=== PATIENT | male | born 1950 | race Caucasian/White ===

== ENCOUNTER 2022-09-09 18:40 | Inpatient (IN) | payer OTHER, SELFPAY ==
--- OUTSIDE RECORDS SUMMARY | 2022-09-09 18:43 | XMS_ITS | Continuity of Care Document ---
:1950 Author Organization [facility] Address [address] [place] [address]- Care Team Providers Name Role Phone Qamar Bobby DO Primary Care Physician Encounter [facility] Date(s): 07/17/22 - 08/27/22 [facility] [address] [place] [address]- Attending Physician: Augustine Christianson MD Admitting Physician: Augustine Christianson MD Referring Physician: Qamar Bobby DO Allergies, Adverse Reactions, Alerts No Known Medication Allergies Immunizations Given and Recorded Vaccine Date Status Refusal Reason [id number] bivalent booster vax 07/17/22 Given influenza virus vaccine, inactivated 07/17/22 Given influenza virus vaccine, inactivated 06/26/15 Given influenza virus vaccine, inactivated 07/19/14 Given influenza virus vaccine, inactivated1 05/10/13 Given influenza virus vaccine, inactivated2 04/21/12 Given influenza virus vaccine, inactivated3 06/04/11 Given pneumococcal 13-valent vaccine 02/05/17 Given Zoster Vaccine Live 09/04/14 Given pneumococcal 23-valent vaccine4, 5 07/13/09 Given Influenza Virus Vaccine (oldterm)6 09/05/08 Given Influenza Virus Vaccine (oldterm)7 07/29/06 Given tetanus-diphtheria toxoids (Td)8 08/04/07 Given 1Admin Note: vis given dated Admin Note: VIS Admin Note: vis given Early/Late Reason: Nursing [id number] Comment: Merck Lot #[id number], exp [id number] Note: VIS [id number] Note: [id number] Note: vis Medications albuterol CFC free 90 mcg/inh inhalation aerosol 1, puffs, Inhalation, Every 4 hours, PRN, moldovan label, # 18 Gm, Refills 11, Tot. Refills 11, Maintenance, 06/25/22 9:40:00 EST, Aerosol, Route to Pharmacy Electronically, [id number], [facility] 175, cm, ... Start Date: 06/25/22 Status: OrderedAll Day Allergy 10 mg oral tablet See Instructions, GHULAM 1 TABLETA POR LA BOCA CADA MIRANDA CUANDO SEA NECESARIO, # 30 tablet, 0 Refills,Maintenance, 07/29/22 17:01:00 EST[facility], [facility], cm, 07/17/22 11:25:00 EST, Height Start Date: 07/29/22 Status: OrderedAnoro Ellipta 62.5 mcg-25 mcg/inh inhalation powder 1 puffs, Inhalation, Daily, # 30 each, 0 Refills, Maintenance, 06/09/22 14:34:00 EDT, Powder, [facility]/pharmacy #[id number], Partial fill upon patient request if the prescription is for a schedule II opioid drug., 1 puffs Inhalation Daily, 175, cm, 06/09/22 14:0... Start Date: 06/09/22 Status: Orderedaspirin 81 mg oral delayed release tablet 81 mg, 1, tablet, By Mouth, Daily, # 30 tablet, Refills 0, Tot. Refills 0, Maintenance, 06/09/22 14:31:00 EDT, Route to Pharmacy Electronically, [facility]/pharmacy #[id number], Partial fill upon patient request ifthe prescription is for a schedule II opioid drug... Start Date: 06/09/22 Status: Orderedatorvastatin 40 mg oral tablet 1 tablet = 40 mg, By Mouth, Daily, moldovan label, # 30 tablet, 11 Refills, Maintenance, 06/25/22 9:40:00 EST, Tablet, [facility] 175, cm, 06/25/22 9:25:00 EST, Height Start Date: 06/25/22 Stop Date: 06/20/23 Status: Ordereddiclofenac 1% topical gel 1 application, Topically, 4 times a day, not to exceed 32 grams/day, # 100 Gm, 2 Refills, Maintenance, 07/17/22 11:44:00 EST, Gel[facility] fill upon patient request if the prescription is for a schedule II opioid drug., 175... Start Date: 07/17/22 Status: OrderedGolytely - oral powder for reconstitution See Instructions, Drink 240mL every 15 minutes until gone, # 4,000 mL, 0 Refills, Maintenance, 08/11/22 13:25:00 EST, [facility] Partial fill upon patient request if the prescription is for a schedule II opioid drug., Drink 240mL ever... Start Date: 08/11/22 Status: Orderedhydrochlorothiazide-losartan 12.5 mg-100 mg oral tablet 1 tablet, By Mouth, Daily, moldovan label, # 30 tablet, 11 Refills, Maintenance, 06/25/22 9:41:00 EST, Tablet, [facility] Partial fill upon patient request if the prescription is for a schedule II opioid drug., 1 tablet By Mouth Daily,... Start Date: 06/25/22 Status: OrderedMetoprolol Tartrate 25 mg oral tablet 1 tablet = 25 mg, By Mouth, Daily, moldovan label, # 30 tablet, 11 Refills, Maintenance, 06/25/22 9:40:00 EST, Tablet, [facility] 175, cm, 06/25/22 9:25:00 EST, Height Start Date: 06/25/22 Stop Date: 06/20/23 Status: Orderednitroglycerin 0.4 mg sublingual tablet 1 tablet = 0.4 mg, Sublingual, Every 5 minutes, PRN as needed for chest pain, moldovan label not to exceed 3 doses/15 min--if pain persists, seek medical attention, # 25 tablet, 11 Refills, Maintenance,06/25/22 9:41:00 EST, Tablet, [facility]-... Start Date: 06/25/22 Status: Orderedpantoprazole 40 mg oral delayed release tablet 1 tablet = 40 mg, By Mouth, Daily, moldovan label, # 30 tablet, 11 Refills, Maintenance, 06/25/22 9:41:00 EST, EC Tablet, 175, cm, 06/25/22 9:25:00 EST, Height Start Date: 06/25/22 Status: OrderedSpiriva Respimat 10 ACT 2.5 mcg/inh inhalation aerosol 2 puffs, Inhalation, Daily, moldovan label, # 1 each, 11 Refills, Maintenance, 06/25/22 9:42:00 EST, [facility], Partial fill upon patient request if the prescription is for a schedule II opioid drug., 175, cm, 06/25/22 9:25:00 EST, Height Start Date: 06/25/22 Status: OrderedTylenol Extra Strength 500 mg oral tablet 2 tablet = 1,000 mg, By Mouth, Every 6 hours, PRN as needed for pain, # 100 tablet, 1 Refills, Maintenance, 07/17/22 11:45:00 EST, Tablet, [facility], Partial fill upon patient request if the prescription is for a schedule II opioid Start Date: 07/17/22 Status: Ordered Problem List Condition Confirmation Course Effective Dates Status Health I nformant Status Asthma1 Confirmed Active 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 BPH (benign prostatic Confirmed Active hypertrophy) Chiari malformation2 Confirmed Active Claustrophobia Confirmed Active COPD - Chronic Confirmed Active obstructive pulmonary disease Hyperkeratosis Confirmed Active Interstitial lung Confirmed Active disease Joint pain Confirmed Active Bladder cancer Confirmed Active STEMI (ST elevation Confirmed Active myocardial infarction)3 Tuberculosis-latent Confirmed Active Tubular adenoma Confirmed 11/2004 Active 1PFT's [id number] on MRI late presentation, not re-vascularized Social History Social History Type Response Smoking Status Former smoker; Type: Cigaret esthela; Stopped at age: 61; entered on: 12/26/13 Sex Patient Care team information Care Team PersonnelName: Qamar Bobby DO Position: [facility] Resident Member Role: PCP Address: Address: [address] [place] [address]- Care Team Related PersonsName: RADHIKA REYES Address: [place] [address] Name: ISI REYES Address: home [address] [address] Name: GAURAV CHAU Address: home [address] [place] [address]
--- OUTSIDE RECORDS SUMMARY | 2022-09-09 18:43 | XMS_ITS | Continuity of Care Document ---
:1950 Author Organization [facility] Address [address] [place] [address]- Care Team Providers Name Role Phone Not on Staff, PCP Primary Care Physician Unavailable Encounter [facility] Date(s): 06/09/22 - 06/16/22 [facility] [address], [place] [address] Attending Physician: Thanh Alejandro DO Referring Physician: Not on Staff, Referring MD Allergies, Adverse Reactions, Alerts No Known Medication Allergies Immunizations Given and Recorded Vaccine Date Status Refusal Reason pneumococcal 13-valent vaccine 02/05/17 Given influenza virus vaccine, inactivated 06/26/15 Given influenza virus vaccine, inactivated 07/19/14 Given influenza virus vaccine, inactivated1 05/10/13 Given influenza virus vaccine, inactivated2 04/21/12 Given influenza virus vaccine, inactivated3 06/04/11 Given Zoster Vaccine Live 09/04/14 Given pneumococcal 23-valent vaccine4, 5 07/13/09 Given Influenza Virus Vaccine (oldterm)6 09/05/08 Given Influenza Virus Vaccine (oldterm)7 07/29/06 Given tetanus-diphtheria toxoids (Td)8 08/04/07 Given 1Admin Note: vis given dated Admin Note: VIS Admin Note: vis given Early/Late Reason: Nursing [id number] Comment: Merck Lot #[id number], exp [id number] Note: VIS [id number] Note: [id number] Note: vis Medications albuterol CFC free 90 mcg/inh inhalation aerosol 1, puffs, Inhalation, Every 4 hours, PRN, # 18 Gm, Refills 11, Tot. Refills 11, Maintenance, 02/05/17 14:21:30, Aerosol, Route to Pharmacy Electronically, [id number], [facility]/pharmacy #[id number], Compound Start Date: 02/05/17 Status: OrderedAnoro Ellipta 62.5 mcg-25 mcg/inh inhalation powder 1 puffs, Inhalation, Daily, # 30 each, 0 Refills, Maintenance, 06/09/22 14:34:00 EDT, Powder, [facility]/pharmacy #[id number], Partial fill upon patient request if the prescription is for a schedule II opioid drug., 1 puffs Inhalation Daily, 175, cm, 06/09/22 14:0... Start Date: 06/09/22 Status: Orderedaspirin 81 mg oral delayed release tablet 81 mg, 1, tablet, By Mouth, Daily, # 30 tablet, Refills 0, Tot. Refills 0, Maintenance, 06/09/22 14:31:00 EDT, Route to Pharmacy Electronically, [facility]/pharmacy #[id number], Partial fill upon patient request ifthe prescription is for a schedule II opioid drug... Start Date: 06/09/22 Status: OrderedAspirin Low Strength 81 mg oral delayed release tablet 1 tablet = 81 mg, By Mouth, Daily, # 30 tablet, 11 Refills, Maintenance, 02/05/17 14:21:32, EC Tablet Start Date: 02/05/17 Stop Date: 01/31/18 Status: Orderedatorvastatin 40 mg oral tablet 1 tablet = 40 mg, By Mouth, Daily, # 30 tablet, 0 Refills, Maintenance, 06/09/22 14:29:00 EDT, Tablet, [facility]/pharmacy #[id number], 175, cm, 06/09/22 14:08:00 EDT, Height Start Date: 06/09/22 Stop Date: 07/09/22 Status: Orderedclopidogrel 75 mg oral tablet 75 mg, 1, tablet, By Mouth, Daily, To protect your heart. Label in Polish, # 90 tablet, Refills 3, Tot. Refills 3, Maintenance, 02/05/17 14:21:27, Route to Pharmacy Electronically, [id number], [facility]/pharmacy #[id number] Start Date: 02/05/17 Stop Date: 06/05/17 Status: OrderedFlomax 0.4 mg oral capsule 0.4 mg, 1, capsule, By Mouth, Daily, # 90 capsule, Refills 11, Tot. Refills 11, Maintenance, 02/05/17 14:21:30, Route to Pharmacy Electronically, [id number], [id number] Start Date: 02/05/17 Status: Orderedhydrochlorothiazide-losartan 12.5 mg-100 mg oral tablet 1 tablet, By Mouth, Daily, # 30 tablet, 0 Refills, Maintenance, 06/09/22 14:33:00 EDT, Tablet, [facility]/pharmacy #[id number], Partial fill upon patient request if the prescription is for a schedule II opioid drug., 1 tablet By Mouth Daily, 175, cm, 06/09/22 14:0... Start Date: 06/09/22 Status: OrderedMetoprolol Tartrate 25 mg oral tablet 1 tablet = 25 mg, By Mouth, Daily, # 30 tablet, 0 Refills, Maintenance, 06/09/22 14:27:00 EDT, Tablet, [facility]/pharmacy #[id number], 175, cm, 06/09/22 14:08:00 EDT, Height Start Date: 06/09/22 Stop Date: 07/09/22 Status: Orderednitroglycerin 0.4 mg sublingual tablet 1 tablet = 0.4 mg, Sublingual, Every 5 minutes, PRN as needed for chest pain, not to exceed 3 doses/15 min--if pain persists, seek medical attention, # 25 tablet, 0 Refills, Maintenance, 06/09/22 14:32:00 EDT, Tablet, [facility]/pharmacy #[id number], Partial fill... Start Date: 06/09/22 Status: Orderednitroglycerin 0.4 mg sublingual tablet 1 tablet = 0.4 mg, Sublingual, Every 5 minutes, PRN Chest Pain, (not to exceed 3 doses/15 min--if pain persists, call 911) Polish label, # 24 tablet, 0 Refills, Maintenance, 04/20/14 14:45:42, Tablet,1 tablet Sublingual Every 5 minutes,PRN:Chest Delmy... Start Date: 04/20/14 Status: Orderedpantoprazole 40 mg oral delayed release tablet 1 tablet = 40 mg, By Mouth, Daily, # 30 tablet, 0 Refills, Maintenance, 06/09/22 14:31:00 EDT, EC Tablet, 175, cm, 06/09/22 14:08:00 EDT, Height Start Date: 06/09/22 Status: Orderedranitidine 300 mg oral tablet 1 tablet = 300 mg, By Mouth, Daily at bedtime, Take at night, for stomach discomfort and pain. Labelin swiss pls, # 30 tablet, 5 Refills, Maintenance, 02/05/17 14:21:29, Tablet Start Date: 02/05/17 Stop Date: 08/04/17 Status: OrderedSpiriva HandiHaler 18 mcg Inhalation Capsule 1 capsule = 18 mcg, Inhalation, Daily, use two inhalations of one capsule for each dose, # 30 capsule, 11 Refills, Maintenance, 02/05/17 14:21:33, Capsule, 1 capsule Inhalation Daily,x30 days,Instr:usetwo inhalations of one capsule for each dose Start Date: 02/05/17 Stop Date: 01/31/18 Status: OrderedSpiriva Respimat 10 ACT 2.5 mcg/inh inhalation aerosol 2 puffs, Inhalation, Daily, # 1 each, 0 Refills, Maintenance, 06/09/22 14:34:00 EDT, [facility]/pharmacy #[id number], Partial fill upon patient request if the prescription is for a schedule II opioid drug., 175, cm, 06/09/22 14:08:00 EDT, Height Start Date: 06/09/22 Status: OrderedSymbicort 160mcg/4.5mcg Inhaler 2, puffs, Inhalation, 2 times a day, rinse mouth and throat after use, # 1 each, Refills 11, Tot. Refills 11, Maintenance, 02/05/17 14:21:31, Aerosol, Route to Pharmacy Electronically, [id number], [facility]/pharmacy #[id number] Start Date: 02/05/17 Stop Date: 01/31/18 Status: Ordered Problem List Condition Confirmation Course [...] Active Tubular adenoma Confirmed 11/2004 Active 1PFT's [id number] on MRI late presentation, not re-vascularized Vital Signs Most recent to oldest [Reference Range]: 1 Height 175 cm (06/09/22 2:08 PM) Oxygen Saturation [94-100 %] 100 % (06/09/22 2:08 PM) Pulse Rate [55-90 bpm] 75 bpm (06/09/22 2:08 PM) Blood Pressure [90-138/55-84 mm Hg] 147/76 mm Hg *H* (06/09/22 2:08 PM) Temperature [96.8-100.4 DegF] 97.7 DegF (06/09/22 2:08 PM) Mode of Delivery (Oxygen) Room air (06/09/22 2:08 PM) Blood pressure sites Arm, left (06/09/22 2:08 PM) Temperature Route Temporal (06/09/22 2:08 PM) Social History Social History Type Response Smoking Status Former smoker; Type: Cigaret esthela; Stopped at age: 61; entered on: 12/26/13 Sex Patient Care team information PersonnelName: Not on Staff, PCP
--- OUTSIDE RECORDS SUMMARY | 2022-09-09 18:43 | XMS_ITS | Continuity of Care Document ---
:1950 Author Organization [facility] Address [address] [place] [address]- Care Team Providers Name Role Phone Diamante Qamar HOOPER Primary Care Physician Encounter [facility] Date(s): 06/09/22 - 07/09/22 [facility] [address], [place] [email or web address] Attending Physician: Dannie Sanders Admitting Physician: Dannie Sanders Referring Physician: AdmtrDannie Allergies, Adverse Reactions, Alerts No Known Medication [...] Admin Note: vis given Early/Late Reason: Nursing [id number] Comment: [employer]ck Lot #[id number], exp [id number] Note: VIS [id number] Note: [id number] Note: vis Medications albuterol CFC free 90 mcg/inh inhalation aerosol 1, puffs, Inhalation, Every 4 hours, PRN, tristanian label, # 18 Gm, Refills 11, Tot. Refills 11, Maintenance, 06/25/22 9:40:00 EST, Aerosol, Route to Pharmacy Electronically, [id number], [facility] 175, cm, ... Start Date: 06/25/22 Status: Orderedamoxicillin 500 mg oral capsule 2 capsule = 1,000 mg, By Mouth, 2 times a day, for 10 days, # 40 capsule, 0 Refills, Acute 07/11/22 13:28:00 EST, 07/01/22 13:28:00 EST, Capsule, [facility] Partial fill upon patient request if the prescription is for a schedule II op... Start Date: 07/01/22 Stop Date: 07/11/22 Status: OrderedAnoro Ellipta 62.5 mcg-25 mcg/inh inhalation powder 1 puffs, Inhalation, Daily, # 30 each, 0 Refills, Maintenance, 06/09/22 14:34:00 EDT, Powder, [facility]/pharmacy #[id number], Partial fill upon patient request if the prescription is for a schedule II opioid drug., 1 puffs Inhalation Daily, 175, cm, 06/09/22 14:0... Start Date: 06/09/22 Status: Orderedaspirin 81 mg oral delayed release tablet 81 mg, 1, tablet, By Mouth, Daily, # 30 tablet, Refills 0, Tot. Refills 0, Maintenance, 06/09/22 14:31:00 EDT, Route to Pharmacy Electronically, [facility]/pharmacy #[id number], Partial fill upon patient request ifthe [...] tablet = 40 mg, By Mouth, Daily, tristanian label, # 30 tablet, 11 Refills, Maintenance, 06/25/22 9:40:00 EST, Tablet, [facility] 175, cm, 06/25/22 9:25:00 EST, Height Start Date: 06/25/22 Stop Date: 06/20/23 Status: Orderedclarithromycin 500 mg oral tablet 1 tablet = 500 mg, By Mouth, 2 times a day, for 10 days, # 20 tablet, 0 Refills, Acute 07/11/22 13:27:00 EST, 07/01/22 13:27:00 EST, Tablet, [facility] Partial fill upon patient request if the prescription is for a schedule II opioid... Start Date: 07/01/22 Stop Date: 07/11/22 Status: Orderedclopidogrel 75 mg oral tablet 75 mg, 1, tablet, By Mouth, Daily, To protect your heart. Label in Irish, # 90 tablet, Refills 3, Tot. Refills 3, Maintenance, 02/05/17 14:21:27, Route to Pharmacy Electronically, [id number], [facility]/pharmacy #[id number] Start Date: 02/05/17 Stop Date: 06/05/17 Status: OrderedFlomax 0.4 mg oral capsule 0.4 mg, 1, capsule, By Mouth, Daily, # 90 capsule, Refills 11, Tot. Refills 11, Maintenance, 02/05/17 14:21:30, Route to Pharmacy Electronically, [id number], [facility]/pharmacy #[id number] Start Date: 02/05/17 Status: Orderedhydrochlorothiazide-losartan 12.5 mg-100 mg oral tablet 1 tablet, By Mouth, Daily, tristanian label, # 30 tablet, 11 Refills, Maintenance, 06/25/22 9:41:00 EST, Tablet, [facility] Partial fill upon patient request if the prescription is for a schedule II opioid drug., 1 tablet By Mouth Daily,... Start Date: 06/25/22 Status: OrderedMetoprolol Tartrate 25 mg oral tablet 1 tablet = 25 mg, By Mouth, Daily, tristanian label, # 30 tablet, 11 Refills, Maintenance, 06/25/22 9:40:00 EST, Tablet, [facility] 175, cm, 06/25/22 9:25:00 EST, Height Start Date: 06/25/22 Stop Date: 06/20/23 Status: Orderednitroglycerin 0.4 mg sublingual tablet 1 tablet = 0.4 mg, Sublingual, Every 5 minutes, PRN as needed for chest pain, tristanian label not to exceed 3 doses/15 min--if pain persists, seek medical attention, # 25 tablet, 11 Refills, Maintenance,06/25/22 9:41:00 EST, Tablet, [facility]-... Start Date: 06/25/22 Status: Orderednitroglycerin 0.4 mg sublingual tablet 1 tablet = 0.4 mg, Sublingual, Every 5 minutes, PRN Chest Pain, (not to exceed 3 doses/15 min--if pain persists, call 911) Irish label, # 24 tablet, 0 Refills, Maintenance, 04/20/14 14:45:42, Tablet,1 tablet Sublingual Every 5 minutes,PRN:Chest Delmy... Start Date: 04/20/14 Status: Orderedpantoprazole 40 mg oral delayed release tablet 1 tablet = 40 mg, By Mouth, Daily, tristanian label, # 30 tablet, 11 Refills, Maintenance, 06/25/22 9:41:00 EST, EC Tablet, 175, cm, 06/25/22 9:25:00 EST, Height Start Date: 06/25/22 Status: Orderedranitidine 300 mg oral tablet 1 tablet = 300 mg, By Mouth, Daily at bedtime, Take at night, for stomach discomfort and pain. Labelin tristanian pls, # 30 tablet, 5 Refills, Maintenance, [...] mcg/inh inhalation aerosol 2 puffs, Inhalation, Daily, tristanian label, # 1 each, 11 Refills, Maintenance, 06/25/22 9:42:00 EST, [facility] fill upon patient request if the prescription is for a schedule II opioid drug., 175, cm, 06/25/22 9:25:00 EST, Height Start Date: 06/25/22 Status: OrderedSymbicort 160mcg/4.5mcg Inhaler 2, puffs, Inhalation, 2 times a day, rinse mouth and throat after use, # 1 each, Refills 11, Tot. Refills 11, Maintenance, 02/05/17 14:21:31, Aerosol, Route to Pharmacy Electronically, [id number], [facility]/pharmacy #[id number] Start Date: 02/05/17 Stop Date: 01/31/18 Status: OrderedZyrTEC 10 mg oral tablet 1 tablet = 10 mg, By Mouth, Daily, PRN for allergy symptoms, tristanian label, # 30 tablet, 0 Refills, Maintenance, 06/25/22 10:39:00 EST, Tablet, [facility], Partial fill upon patient request if the prescription is for a schedule II opio... Start Date: 06/25/22 Status: Ordered Problem List Condition Confirmation Course [...] Active Tubular adenoma Confirmed 11/2004 Active 1PFT's [id number] on MRI late presentation, not re-vascularized Social History Social History Type Response Smoking Status Former smoker; Type: Cigaret esthela; Stopped at age: 61; entered on: 12/26/13 Sex Patient Care team information Care Team PersonnelName: Qamar Bobby DO Position: [facility] Resident Member Role: PCP Address: Address: [facility] [address] Care Team Related PersonsName: RADHIKA REYES Address: [place] [address] Name: ISI REYES Address: home [address] [place] [id number] Name: GAURAV CHAU Address: [address] [address]
--- OUTSIDE RECORDS SUMMARY | 2022-09-09 18:44 | XMS_ITS | Continuity of Care Document ---
:1950 Author Organization [facility] Address [address] [place] [address]- Care Team Providers Name Role Phone Diamante Qamar HOOPER Primary Care Physician Encounter [facility] Date(s): 07/17/22 - 08/16/22 [facility] [address] [place] [id number] Attending Physician: Admtr, Dannie Allergies, Adverse Reactions, Alerts No Known Medication Allergies Immunizations Given and Recorded Vaccine Date Status Refusal Reason [id number] bivalent booster vax 07/17/22 Given influenza virus [...] Admin Note: vis given Early/Late Reason: Nursing [id number] Comment: [employer] Lot #[id number], exp [id number] Note: VIS [id number] Note: [id number] Note: vis Medications albuterol CFC free 90 mcg/inh inhalation aerosol 1, puffs, Inhalation, Every 4 hours, PRN, venezuelan label, # 18 Gm, Refills 11, Tot. Refills 11, Maintenance, 06/25/22 9:40:00 EST, Aerosol, Route to Pharmacy Electronically, [id number], [facility], cm, ... Start Date: 06/25/22 Status: OrderedAll Day Allergy 10 mg oral tablet See Instructions, GHULAM 1 TABLETA POR LA BOCA CADA MIRANDA CUANDO SEA NECESARIO, # 30 tablet, 0 Refills,Maintenance, 07/29/22 17:01:00 EST, [facility], [facility], cm, 07/17/22 11:25:00 EST, Height Start Date: 07/29/22 Status: OrderedAnoro Ellipta 62.5 mcg-25 mcg/inh inhalation powder 1 puffs, Inhalation, Daily, # 30 each, 0 Refills, Maintenance, 06/09/22 14:34:00 EDT, Powder, [facility]/pharmacy #[id number], Partial fill upon patient request if the prescription is for a schedule II opioid drug., 1 puffs Inhalation Daily, 175, cm, 06/09/22 14:0... Start Date: 06/09/22 Status: Orderedaspirin 81 mg oral delayed release tablet 81 mg, 1, tablet, By Mouth, Daily, # 30 tablet, Refills 0, Tot. Refills 0, Maintenance, 06/09/22 14:31:00 EDT, Route to Pharmacy Electronically, [facility]/pharmacy #[id number], Partial fill upon patient request ifthe prescription is for a schedule II opioid drug... Start Date: 06/09/22 Status: Orderedatorvastatin 40 mg oral tablet 1 tablet = 40 mg, By Mouth, Daily, venezuelan label, # 30 tablet, 11 Refills, Maintenance, 06/25/22 9:40:00 EST, Tablet, [facility] 175, cm, 06/25/22 9:25:00 EST, Height Start Date: 06/25/22 Stop Date: 06/20/23 Status: Ordereddiclofenac 1% topical gel 1 application, Topically, 4 times a day, not to exceed 32 grams/day, # 100 Gm, 2 Refills, Maintenance, 07/17/22 11:44:00 EST, Gel, [facility] Partial fill upon patient request if the prescription is for a schedule II opioid drug., 175... Start Date: 07/17/22 Status: OrderedGolytely - oral powder for reconstitution See Instructions, Drink 240mL every 15 minutes until gone, # 4,000 mL, 0 Refills, Maintenance, 08/11/22 13:25:00 EST, [facility] Partial fill upon patient request if the prescription is for a schedule II opioid drug., Drink 240mL ever... Start Date: 08/11/22 Status: Orderedhydrochlorothiazide-losartan 12.5 mg-100 mg oral tablet 1 tablet, By Mouth, Daily, venezuelan label, # 30 tablet, 11 Refills, Maintenance, 06/25/22 9:41:00 EST, Tablet, [facility] Partial fill upon patient request if the prescription is for a schedule II opioid drug., 1 tablet By Mouth Daily,... Start Date: 06/25/22 Status: OrderedMetoprolol Tartrate 25 mg oral tablet 1 tablet = 25 mg, By Mouth, Daily, venezuelan label, # 30 tablet, 11 Refills, Maintenance, 06/25/22 9:40:00 EST, Tablet, [facility] 175, cm, 06/25/22 9:25:00 EST, Height Start Date: 06/25/22 Stop Date: 06/20/23 Status: Orderednitroglycerin 0.4 mg sublingual tablet 1 tablet = 0.4 mg, Sublingual, Every 5 minutes, PRN as needed for chest pain, venezuelan label not to exceed 3 doses/15 min--if pain persists, seek medical attention, # 25 tablet, 11 Refills, Maintenance,06/25/22 9:41:00 EST, Tablet, [facility]... Start Date: 06/25/22 Status: Orderedpantoprazole 40 mg oral delayed release tablet 1 tablet = 40 mg, By Mouth, Daily, venezuelan label, # 30 tablet, 11 Refills, Maintenance, 06/25/22 9:41:00 EST, [facility] Tablet, 175, cm, 06/25/22 9:25:00 EST, Height Start Date: 06/25/22 Status: OrderedSpiriva Respimat 10 ACT 2.5 mcg/inh inhalation aerosol 2 puffs, Inhalation, Daily, venezuelan label, # 1 each, 11 Refills, Maintenance, 06/25/22 9:42:00 EST, [facility] Partial fill upon patient request if the prescription is for a schedule II opioid drug., 175, cm, 06/25/22 9:25:00 EST, Height Start Date: 06/25/22 Status: OrderedTylenol Extra Strength 500 mg oral tablet 2 tablet = 1,000 mg, By Mouth, Every 6 hours, PRN as needed for pain, # 100 tablet, 1 Refills, Maintenance, 07/17/22 11:45:00 EST, Tablet, [facility] Partial fill upon patient request if the [...] Active Tubular adenoma Confirmed 11/2004 Active 1PFT's [id number] on MRI late presentation, not re-vascularized Procedures Procedure Date Related Diagnosis Body Site Status colonoscopy1 11/26/04 Completed 1repeat in 5 yrs d/t tubular adenoma Social History Social History Type Response Smoking Status Former smoker; Type: Cigaret esthela; Stopped at age: 61; entered on: 12/26/13 Sex Note Event Display: X-Ray Chest, Non- BH Authored Date: [id number] Viviane Celaya: PERFORM, SIGN, VERIFY Event Display: Patient Education/Instruction Authored Date: [facility] Clinical Summary Person Information Name ISI REYES Age 62 Years 1950 12:00 AM PCP Dmitriy Baltazar MD , Christy PCP Reason for Visit: Allergy Info: NKA Vital Signs Height Weight BMI Blood Pressure / Temperature Pulse Rate Respiratory Rate 02 Sat Mode of Delivery / Medication Information Albuterol (albuterol CFC free 90 mcg/inh inhalation aerosol) 1 puffs, Inhalation, 4 times a day, DOSE INCREASE, 30 days, As Needed, for wheezing, Refills: 3 Aspirin (aspirin 81 mg oral enteric coated tablet) 1 tablet, Oral, Daily, 30 days, Refills: 11 Atorvastatin (atorvastatin 40 mg oral tablet) 1 tablet, Oral, Daily, Refills: 3 Budesonide-Formoterol (Symbicort 160mcg/4.5mcg Inhaler) 2 puffs, Inhalation, twice a day, 30 days, Refills: 11 Citalopram (citalopram 10 mg oral tablet) 1 tablet, Oral, Daily, Refills: 0 Clopidogrel (clopidogrel 75 mg oral tablet) 1 tablet, Oral, Daily, 30 days, Refills: 7 Durable Medical Equipment (Shower Chair) , See Instructions, place in shower diag: deconditioning secondary to CT and COPD Lisinopril (lisinopril 5 mg oral tablet) 1 tablet, Oral, Daily, 30 days, Refills: 11 Metoprolol (Metoprolol Tartrate 25 mg oral tablet) 1 tablet, Oral, twice a day, 30 days, Refills: 11 Nitroglycerin (nitroglycerin 0.4 mg sublingual tablet) 1 tablet, Sublingual, every 5 minutes, (not to exceed 3 doses/15 min--if pain persists, seek medical attention). Label in Turkish pls, As Needed, Chest Pain, Refills: 0 Ranitidine (ranitidine 300 mg oral tablet) 1 tablet, Oral, Daily at Bedtime, Take at night, for stomach discomfort and pain. Label in venezuelan pls, 30 days, Refills: 5 Tiotropium (Spiriva HandiHaler 18 mcg Inhalation Capsule) 1 capsule, Inhalation, Daily in the morning, 30 days, Refills: 3 Problem List Date Problem 06/06/09 Tubular adenoma 03/10/07 Joint pain 03/10/07 Claustrophobia 03/10/07 Smoker 03/10/07 Interstitial lung disease 03/10/07 Hyperkeratosis 05/26/07 Chiari malformation 03/04/11 COPD - Chronic obstructive pulmonary disease 07/07/11 Tuberculosis 05/06/12 STEMI (ST elevation myocardial infarction) If the following labs have been performed in the last year, the most recent result is displayed below. Diagnostic Results Lab Result Value Date Lead Hemoglobin A1C 5.5 02/06/12 LDL 62 02/17/12 HDL 44 02/17/12 Triglycerides 81 02/17/12 Total Cholesterol 122 02/17/12 Disclaimer: The information provided is of a general nature and is intended to be used in conjunction with the recommendations and advice of your health care practitioner. Every effort has been made toensure that the information provided is accurate and complete at the time it is provided to you however, as your needs change, or, as new information becomes available, different or additional instructions may be required. If you have questions, please consult with your primary care provider or pharmacist, as appropriate.This information is not intended to serve as substitution for assessment and evaluation by a qualified health care provider. If you do not have a primary care provider, you may find a [facility] pr ovider by calling [facility] [employer] at [phone]. Patient Education Information Follow-up Details: With: Address: When: [facility] [address] [place] [address], [address] [place] [address] Business (1) 04/06/2012 9:45 AM Comments: LEFT KNEE PAIN Patient Education Material:Tania Yoder: PERFORM, SIGN, VERIFY Event Display: Patient Education/Instruction Authored Date: [id number] [facility] Clinical Summary Person Information Name ISI REYES Age 61 Years 1950 12:00 AM PCP Christy To MD PCP Reason for Visit: Allergy Info: NKA Vital Signs Height Weight BMI Blood Pressure / Temperature Pulse Rate Respiratory Rate 02 Sat Mode of Delivery / Medication Information Acetaminophen (acetaminophen 650 mg oral tablet, extended release) 1 tablet, Oral, every 6 hours, for knee pain, Refills: 1 Albuterol (albuterol CFC free 90 mcg/inh inhalation aerosol) 1 puffs, Inhalation, 4 times a day, DOSE INCREASE, As Needed, for wheezing, Refills: 3 Aspirin (aspirin 81 mg oral enteric coated tablet) 1 tablet, Oral, Tomorrow, Refills: 0 Aspirin (aspirin 81 mg oral enteric coated tablet) 1 tablet, Oral, Tomorrow, Refills: 11 Atorvastatin (atorvastatin 80 mg oral tablet) 1 tablet, Oral, Tomorrow, Refills: 3 Budesonide-Formoterol (Symbicort 80mcg/4.5mcg Inhaler) 2 puffs, Inhalation, twice a day, Refills: 3 Clopidogrel (clopidogrel 75 mg oral tablet) 1 tablet, Oral, Tomorrow, Refills: 7 Cyclobenzaprine (cyclobenzaprine 10 mg oral tablet) 1 tablet, Oral, 3 times a day, Use for muscle spasm in neck, As Needed, for spasm, Refills: 2 Docusate (Colace sodium 100 mg oral capsule) 1 capsule, Oral, twice a day, As Needed, Constipation, Refills: 3 Folic Acid (folic acid 1 mg oral tablet) 1 tablet, Oral, Tomorrow, Refills: 3 Ibuprofen (ibuprofen 600 mg oral tablet) 1 tablet, Oral, every 8 hours, with food or milk, As Needed, as needed for pain, Refills: 0 Lisinopril (lisinopril 5 mg oral tablet) 1 tablet, Oral, Tomorrow, Refills: 11 Metoprolol (Metoprolol Tartrate 25 mg oral tablet) 1 tablet, Oral, twice a day, Refills: 11 Omeprazole (Prilosec 20 mg oral enteric coated capsule) 1 capsule, Oral, Tomorrow, Refills: 0 Thiamine (Vitamin B1 50 mg oral tablet) 1 tablet, Oral, Tomorrow, Refills: 0 Tiotropium (Spiriva HandiHaler 18 mcg Inhalation Capsule) 1 capsule, Inhalation, Daily in the morning, Refills: 3 Problem List Date Problem 06/06/09 Tubular adenoma 03/10/07 Joint pain 03/10/07 Claustrophobia 03/10/07 Smoker 03/10/07 Interstitial lung disease 03/10/07 Hyperkeratosis 05/26/07 Chiari malformation 03/04/11 COPD - Chronic obstructive pulmonary disease 07/07/11 Tuberculosis If the following labs have been performed in the last year, the most recent result is displayed below. Diagnostic Results Lab Result Value Date Lead Hemoglobin A1C 5.5 02/06/12 LDL 62 02/17/12 HDL 44 02/17/12 Triglycerides 81 07/04/12 Total Cholesterol 122 02/17/12 Disclaimer: The information provided is of a general nature and is intended to be used in conjunction with the recommendations and advice of your health care practitioner. Every effort has been made toensure that the information provided is accurate and complete at the time it is provided to you however, as your needs change, or, as new information becomes available, different or additional instructions may be required. If you have questions, please consult with your primary care provider or pharmacist, as appropriate.This information is not intended to serve as substitution for assessment and evaluation by a qualified health care provider. If you do not have a primary care provider, you may find a [facility] [employer] pr ovider by calling [facility] [employer] at [phone]. Patient Education Information Follow-up Details: With: Address: When: [facility] [address] [place] [address], [address] [place] [id number] Business (1) 04/06/2012 9:45:00 Comments: LEFT KNEE PAIN Patient Education Material: Patient Care team information Care Team PersonnelName: Qamar Bobby DO Position: [facility] Resident Member Role: PCP Address: Address: [address] [place] [id number]- Care Team Related PersonsName: RADHIKA REYES Address: [place] [address] Name: ISI REYES Address: home [address] [place] [address] Name: GAURAV CHAU Address: home [address] [place] [address]
[2022-09-09 20:45] VITALS: BP 124/74; PULSE 74; RESP 16; TEMP 36.4; O2SAT 94
--- NOTE | 2022-09-10 00:23 | PC.ADMIT ---
pt is 72 year old gentleman who has multiple medical comorbidities. pt is entirely czech speaking and intake interview was conducted with the assistance of house marketing manager health communications camilo. pt has 9 children and moved to this area several years ago to be closer to his familty. in recent times pt had developed a cough which led to a visit to his PCP. while at his pcp pt expressed paranoid and delusional thinking. pt was convinced that people were out to kill him. subsequently, pt was transferred to [facility] for psychiatric evaluation. while in the confines of [facility] emergency dept pt endorsed auditory hallucinations and paranoia. the psychiatric team was very much concerned with the pt comorbidities as well as his new onset psychiatric presentation and the decision was made to admit him to a medical floor. ct of brain revealed no pathology. a mri of the brain without contrast did not reveal any anomalies. psychiatry started pt on celexa and seroquel and wanted to avoid any anticholinergic,antihistamines and benzodiazapines. an EEG was performed which which showed no evidence of epileptiform activity. pt needs pt/ot consult for walker. pts comorbidies include copd/rectal bleeding/cad STEMI (stents), bladder cancer,chiari malformation. med rec was taken from discharge and passed along to dr mcqueen.
[2022-09-10 06:00] VITALS: BP 136/74; PULSE 88; RESP 16; TEMP 36.5; O2SAT 95
[2022-09-10] MEDS: Atorvastatin Calcium 40 MG TABLET PO (10:26)
[2022-09-10] MEDS: Omeprazole 20 MG CAPSULE.DR PO (10:26)
[2022-09-10] MEDS: Loratadine 10 MG TABLET PO (10:27)
[2022-09-10] MEDS: Thiamine HCL 100 MG TABLET PO (10:27)
[2022-09-10] MEDS: Metoprolol Tartrate 25 MG TABLET PO (10:27)
[2022-09-10] MEDS: Escitalopram Oxalate 10 MG TABLET PO (10:27)
[2022-09-10] MEDS: Tamsulosin HCL 0.4 MG CAPSULE PO (10:27)
[2022-09-10] MEDS: Aspirin Enteric Coated 81 MG TABLET.DR PO (10:27)
[2022-09-10] MEDS: Losartan Potassium 50 MG TABLET 100 MG PO (10:27)
[2022-09-10] MEDS: polyethylene glycoL 3350 17 GM POWD.PACK PO (10:28)
--- NOTE | 2022-09-10 13:35 | P.HPPS_ITS ---
[facility] Date of Service: 09/10/22 Chief Complaint: psychosis Sources of Information: patient interviewed, chart reviewed and crisis/core team assessment reviewed HPI Subjective Notes: [place] Warning and Conditional Voluntary Narrative: The patient is a 72-year-old Micronesian male, , father of 11 biological children, only Danish-speaking, retired, with good social support, referred from the emergency room from another hospital for recent onset of medical problems and psychotic symptoms elicited by auditory hallucinations and paranoia. The patient has several medical comorbidities such as COPD, CHF and CAD. Apparently, the patient complained of shortness of breath and he was rushed to the emergency room a over there he complained of auditory hallucinations, paranoia and persecutory delusions. He was assessed by the crisis team referred into this facility for psychiatric stabilization. Historically, the patient does not have any major psychiatric problems besides anxiety and depression that was treated as an outpatient for several years. In the last years, he admitted that his cognition, patient his short-term memory has worsened it. But, according to the patient's report, in the last 2 or 3 months he started having auditory is hallucinations, mostly name calling, paranoia, stating that people wants to hurt him and persecutory delusions. In the interview, the patient denies active suicidal ideation, he complains of some depressive symptoms elicited by depressed mood, anhedonia lack of energy but he is able to contract for safety in the facility. We discussed risks, benefits, side-effects and alternatives and he agreed to start a low dose of haloperidol Remeron at night for insomnia and depression. Past Psychiatric History: The patient denies prior psychiatric admissions, he reported that he was treated as an outpatient, he cannot remember prior psychiatric medications. Medical Evaluation Reviewed: Yes [facility] Narrative: COPD Diabetes CHF Family History: Denies Social History: The patient is the Fort of 10 children, he was born and raised in [place]. His milestones were achieved at expected age and he was raised by his parents. We he was in 7th grade his father and he needed to stop going to school and start working to support the family. 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 When he was young he got and has 1 child and later he his 1st . Later on he got with a 2nd and had a children. Also, while he was he had 2 children another partner. The patient has very good family support. Substance History: Denies Trauma History: Denies Diagnostics Vital Signs (24Hr): Vital Signs - 24 hr 09/09/22 20:45 09/10/22 06:00 Temperature 97.6 F 97.7 F Pulse Rate 74 88 Respiratory Rate 16 16 Blood Pressure 124/74 136/74 Pulse Oximetry 94 95 Oxygen Delivery Method Room Air Room Air Meds/Allergies Meds Home Medications Medication Instructions Recorded Confirmed Type Seroquel 25 mg PO BEDTIME 09/09/22 09/09/22 History Seroquel 25 mg PO Q6H PRN Psychosis 09/09/22 09/09/22 History acetaminophen 1,000 mg PO Q6H PRN Pain 09/09/22 09/09/22 History albuterol sulfate 1 puff inhalation Q4H PRN Wheezing 09/09/22 09/09/22 History aspirin 81 mg tablet,delayed 81 mg PO DAILY 09/09/22 09/09/22 History release atorvastatin 40 mg tablet 40 mg PO DAILY 09/09/22 09/09/22 History cetirizine 10 mg tablet 10 mg PO DAILY 09/09/22 09/09/22 History citalopram 20 mg PO DAILY 09/09/22 09/09/22 History diclofenac sodium 1 % topical gel 2 g topical QID 09/09/22 09/10/22 History losartan 100 mg PO DAILY 09/09/22 09/09/22 History metoprolol tartrate 25 mg tablet 25 mg PO DAILY 09/09/22 09/10/22 History nitroglycerin 0.4 mg sublingual See Rx Instructions .Route .COMPLEX 09/09/22 09/10/22 History tablet polyethylene glycol 17 g PO DAILY constipation 09/09/22 09/09/22 History thiamine HCl (vitamin B1) 100 mg PO DAILY@0730 09/09/22 09/09/22 History pantoprazole 40 mg tablet,delayed 40 mg PO DAILY 09/10/22 09/10/22 History release peg-electrolyte solution oral 240 ml PO Q10M 09/10/22 09/10/22 History tamsulosin 0.4 mg capsule 0.4 mg PO DAILY 09/10/22 09/10/22 History tiotropium bromide 2.5 2 puff inhalation DAILY 09/10/22 09/10/22 History mcg/actuation mist for inhalation umeclidinium 62.5 mcg-vilanterol 1 inh inhalation DAILY 09/10/22 09/10/22 History 25 mcg/actuation powdr for inhalation Allergies Allergies Allergy/AdvReac Type Severity Reaction Status Date / Time No Known Allergies Allergy Verified 09/09/22 18:54 Mental Status Exam Mental Status Exam Patient Appearance: Appropriate Patient Orientation: Person, Place and Situation Level of Consciousness: Awake and Appropriate Patient Behavior: Guarded and Passive Mood Description: Withdrawn Affect Description: Constricted Patient Cognition Impaired: Yes Ability to Follow Directions: Good Speech Pattern: Clear Hallucinations: Auditory Delusions: Paranoid Ideation and Ideas of Reference Thought Process: Distracted and Slowed Thinking Thought Content: positive for [place], positive for Circumstantial and positive for Poverty of Content Judgement: Fair Assessment & Plan Assessment & Plan (1) Dementia: Status: Acute Code(s): F03.90 - Unspecified dementia, unspecified severity, without behavioral disturbance, psychotic disturbance, mood disturbance, and anxiety (2) Depression: Status: Acute Code(s): F32.A - Depression, unspecified (3) Delirium: Status: Acute Code(s): R41.0 - Disorientation, unspecified (4) Psychosis: Status: Acute Code(s): F29 - Unspecified psychosis not due to a substance or known physiological condition Plan The patient is a elderly Micronesian male with a prior history of depression anxiety who was referred into this facility after he went to the emergency room for shortness of breath. Over there he admitted of psychotic symptoms elicited by auditory hallucinations and paranoia. Also it was noticeable that he had a cognitive impairment. Plan 1. Gather collateral information. 2. Continue medical workout for medical reasons of acute mental status change. 3. Start Haldol 0.5 mg p.o. t.i.d. to target psychosis. Also add Haldol 0.5 p.o. b.i.d. p.r.n. hallucinations. 4. Start Remeron 7.5 mg p.o. q.h.s. to target depression and poor sleep. 5. Start discharge planning Patient educated on: diagnosis, therapeutic strategies and medical condition Guardian/Caregiver educated on: therapeutic strategies Informed Consent: further education needed Reason for continued inpatient stay Substantial Risk for: inability to function, rapid decompensation and med/psych decompensation Statement Statement: I have reviewed the history and physical and performed a pertinent examination on my patient. No changes have occurred unless specified. If the History and Physical was not performed prior to admission, the Hospitalist's service will be consulted for completing the admission physical. Time Spent With Patient Time: Total time managing care of this patient today ____ minutes.
--- NOTE | 2022-09-10 16:54 | HO.PM.IMCN ---
History of Present Illness Data of Consult Service Date: 09/10/22 Primary Care Provider: Unknown Physician HPI Reason for consult: Admission H&P Pt is a 72-year-old male with a PMH significant for CAD with [place] x2 (COPD, depression, HTN, HLD, prostate cancer, Chiari malformation, recent rectal bleeding, and recent acute encephalopathy with paranoia and auditory hallucinations who is seen for admission H&P. Pt has recently moved back from [place] and is primarily Luxem[place]ger-speaking. Musician Instrumental services utilized. Patient complains of lower back and leg pain, particularly in right knee. Patient already received a left knee arthroplasty and apparently will be seeing orthopedics about a right knee arhroplasty soon. Pt ambulates with a walker and is noted to have a slow, shuffling gait. Pt also complains of chest pain that has been ongoing for weeks and is especially prominent when coughing. Pt also has lower abdominal pain for which he has an appointment with GI in early September. Of note, patient was admitted to [facility] on 09/01/2022 for acute encephalopathy with new onset paranoia and auditory hallucinations. He underwent a full neurological workup including a CT of the brain that was negative for any acute pathology, MRI of the brain without contrast that was negative for any acute abnormality, EEG which showed no evidence of epileptiform activity, and CTA of chest that was negative for PE or infection. Review of Systems Review of Systems: Right knee pain Lower back pain Chest pain with coughing Lower abdominal pain Yes all other systems are reviewed and are negative [facility] Medical History (Updated 09/10/22 @ 17:53 by VIKTOR Razo) Prostate cancer Social History Household Members: Unknown / Unable to assess Housing: Unknown / Unable to assess Do you presently have visiting nurse or other home services: No Patient Tobacco Use Status: Never used Tobacco Smoked in Last 30 Days: No e-Cigarette/Vaping Use: Never Used Patient Interested in Nicotine Replacement: No Patient Given Instructions on How to Stop Smoking: No Use of substances other than those prescribed or required for medical reasons: No Currently Displaying Signs/Symptoms of Drug Intoxication Withdrawal: No Any prior treatment program specific to substance use: No Have you been hit, kicked, punched, or otherwise hurt by someone within the past year? If so, by whom?: No Do you feel safe in your current relationship?: No Current Relationship Is there a partner from a previous relationship who is making you feel unsafe now?: No Are you made to feel afraid or neglected: No Spiritual Healthcare Practices: Islam-Christian Advance Directives: No Advance Directives Information Provided: No Do you have thoughts of harming others: None Do you have a plan to hurt others: No Plan Recently lost weight without trying: Unsure How much weight loss: Unsure Eating poorly because of decreased appetite: Yes Nutrition screen score: 5 Nutrition Risks: No Nutritional Risk Poor oral hygiene: No Meds Allergies Allergy/AdvReac Type Severity Reaction Status Date / Time No Known Allergies Allergy Verified 09/09/22 18:54 Active Medications: Current Medications Acetaminophen (Acetaminophen 325 Mg Tablet) 650 mg PO Q6H PRN PRN Reason: Headache/Pain Mild Scale (1-3) Al Hydroxide/Mg Hydroxide (Magnesium Hydrox/Alum Hydrox 30 Ml Oral.Susp) 30 ml PO Q6H PRN PRN Reason: Heartburn/Nausea Albuterol Sulfate (Albuterol Sulfate 90 Mcg 8 Gm Inhaler) 1 puff INHALE RQ4H PRN PRN Reason: Wheezing Aspirin (Aspirin Enteric Coated 81 Mg Tablet.Dr) 81 mg PO DAILY [facility] Last Admin: 09/10/22 10:27 Dose: 81 mg Atorvastatin Calcium (Atorvastatin Calcium 40 Mg Tablet) 40 mg PO DAILY [facility] Last Admin: 09/10/22 10:26 Dose: 40 mg Escitalopram Oxalate (Escitalopram Oxalate 10 Mg Tablet) 10 mg PO DAILY [facility] Last Admin: 09/10/22 10:27 Dose: 10 mg Haloperidol (Haloperidol 0.5 Mg Tablet) 0.5 mg PO TID [facility] Haloperidol (Haloperidol 0.5 Mg Tablet) 0.5 mg PO BID PRN PRN Reason: psychosis Loratadine (Loratadine 10 Mg Tablet) 10 mg PO DAILY [facility] Last Admin: 09/10/22 10:27 Dose: 10 mg Losartan Potassium (Losartan Potassium 50 Mg Tablet) 100 mg PO DAILY [facility] Last Admin: 09/10/22 10:27 Dose: 100 mg Magnesium Hydroxide (Milk Of Magnesia 30 Ml Oral.Susp) 30 ml PO DAILY PRN PRN Reason: Constipation Metoprolol Tartrate (Metoprolol Tartrate 25 Mg Tablet) 25 mg PO DAILY [facility]; Protocol Last Admin: 09/10/22 10:27 Dose: 25 mg Nitroglycerin (Nitroglycerin 0.4 Mg Tab.Subl) 0 mg SUBLINGUAL Q5MX3 PRN PRN Reason: Chest Pain Non-Formulary Medication (Diclofenac Sodium) 2 gm TOPICAL QID [facility] Non-Formulary Medication (Umeclidinium-Vilanterol) 1 inhalation INHALE DAILY [facility] Omeprazole (Omeprazole 20 Mg Capsule.Dr) 20 mg PO DAILY [facility] Last Admin: 09/10/22 10:26 Dose: 20 mg Polyethylene Glycol (Polyethylene Glycol 3350 17 Gm Powd.Pack) 17 gm PO DAILY [facility] Last Admin: 09/10/22 10:28 Dose: 17 gm Quetiapine Fumarate (Quetiapine Fumarate 25 Mg Tablet) 25 mg PO BEDTIME [facility] Tamsulosin HCl (Tamsulosin Hcl 0.4 Mg Capsule) 0.4 mg PO DAILY [facility] Last Admin: 09/10/22 10:27 Dose: 0.4 mg Thiamine HCl (Thiamine Hcl 100 Mg Tablet) 100 mg PO DAILY@0730 [facility] Last Admin: 09/10/22 10:27 Dose: 100 mg Tiotropium [place] (Tiotropium [place] 18 Mcg Cap.W.Dev) 2 puff INHALE RDAILY [facility] Last Admin: 09/10/22 10:44 Dose: Not Given Trazodone HCl (Trazodone Hcl 50 Mg Tablet) 50 mg PO BEDTIME PRN PRN Reason: Insomnia Home Medications Medication Instructions Recorded Confirmed Last Taken Type Seroquel 25 mg PO BEDTIME 09/09/22 09/09/22 Unknown History Seroquel 25 mg PO Q6H PRN Psychosis 09/09/22 09/09/22 Unknown History acetaminophen 1,000 mg PO Q6H PRN Pain 09/09/22 09/09/22 Unknown History albuterol sulfate 1 puff inhalation Q4H PRN Wheezing 09/09/22 09/09/22 Unknown History aspirin 81 mg tablet,delayed 81 mg PO DAILY 09/09/22 09/09/22 Unknown History release atorvastatin 40 mg tablet 40 mg PO DAILY 09/09/22 09/09/22 Unknown History cetirizine 10 mg tablet 10 mg PO DAILY 09/09/22 09/09/22 Unknown History citalopram 20 mg PO DAILY 09/09/22 09/09/22 Unknown History diclofenac sodium 1 % topical gel 2 g topical QID 09/09/22 09/10/22 Unknown History losartan 100 mg PO DAILY 09/09/22 09/09/22 Unknown History metoprolol tartrate 25 mg tablet 25 mg PO DAILY 09/09/22 09/10/22 Unknown History nitroglycerin 0.4 mg sublingual See Rx Instructions .Route .COMPLEX 09/09/22 09/10/22 Unknown History tablet polyethylene glycol 17 g PO DAILY constipation 09/09/22 09/09/22 Unknown History thiamine HCl (vitamin B1) 100 mg PO DAILY@0730 09/09/22 09/09/22 Unknown History pantoprazole 40 mg tablet,delayed 40 mg PO DAILY 09/10/22 09/10/22 Unknown History release peg-electrolyte solution oral 240 ml PO Q10M 09/10/22 09/10/22 Unknown History tamsulosin 0.4 mg capsule 0.4 mg PO DAILY 09/10/22 09/10/22 Unknown History tiotropium bromide 2.5 2 puff inhalation DAILY 09/10/22 09/10/22 Unknown History mcg/actuation mist for inhalation umeclidinium 62.5 mcg-vilanterol 1 inh inhalation DAILY 09/10/22 09/10/22 Unknown History 25 mcg/actuation powdr for inhalation Physical Exam Vital Signs and Narrative: Vital Signs: Last Vital Signs Temp 97.7 F 09/10/22 06:00 Pulse 88 09/10/22 06:00 Resp 16 09/10/22 06:00 BP 136/74 09/10/22 06:00 Pulse Ox 95 09/10/22 06:00 O2 Del Method 09/10/22 06:00 Constitutional: Alert, in no acute distress. Mental Status: Oriented to person, place and time. Eyes: Pupils are equal, round, and reactive to light. Ear, Nose, and Throat: Oropharynx clear, mucous membranes moist. Ears and nose without deformities. Trachea midline. Respiratory: Clear to auscultation bilaterally. No wheezing, rales, or rhonchi. Cardiovascular: S1, S2 regular. No murmurs, rubs, or gallops. Gastrointestinal: Abdomen soft, lower abdomen diffusely tender, non-distended. Normal bowel sounds. Neurologic: Cranial nerves II-XII are grossly intact. No focal neurological deficits. Moves all extremities spontaneously. Skin: No rashes or lesions noted. Musculoskeletal: Anterior chest wall diffusely tender to palpation. Back diffusely tender to palpation. 4/5 strength bilaterally of upper extremities. 3/5 strength of lower extremities bilaterally. Extremities: No edema. Psychiatric: Normal mood and affect. Assessment and Plan (1) Routine history and physical examination of adult: Status: Acute (2) Atypical chest pain: Status: Acute Plan Pt is a 72-year-old male with a PMH significant for CAD with [place] x2 (COPD, depression, HTN, HLD, prostate cancer, Chiari malformation, recent rectal bleeding, and recent acute encephalopathy with paranoia and auditory hallucinations who is seen for admission H&P. Atypical chest pain Pt with history of CAD, but pain has been going on for weeks, especially associated with coughing Most likely musculoskeleta: pt not diaphoretic, tachycardic, tachypneic, anterior chest wall tender to palpation Will get EKG for baseline Continue aspirin, statin, metoprolol Chronic back and leg pain Encourage aide-assisted walking with walker in hallway Tylenol, diclofenac gel for pain F/U outpatient with ortho about right knee replacement HLD Continue home meds History of BPH Continue tamsulosin History of abdominal pain and rectal bleeding Patient will f/u outpatient for colonoscopy on 09/25/2022 COPD No wheezing or rhonchi on exam, does not seem in acute exacerbation Continue home inhalers Allergies Hold cetirizine d/t recent acute encephalopathy Thank you for allowing us to participate in the care of this pt. We will follow EKG once done. Please let us know if there are any additional questions or concerns Time Spent With Patient Time: Total time managing care of this patient today ____ minutes.
[2022-09-10] MEDS: HaloperidoL 0.5 MG TABLET PO (21:20)
[2022-09-10] MEDS: QUEtiapine Fumarate 25 MG TABLET PO (21:20)
[2022-09-10 21:22] VITALS: BP 116/71; PULSE 75; RESP 18; TEMP 36.6; O2SAT 94
--- NOTE | 2022-09-11 | ECG_ITS ---
Test Reason : cp Blood Pressure : / mmHG Vent. Rate : 070 BPM Atrial Rate : 070 BPM P-R Int : 150 ms QRS Dur : 110 ms QT Int : 400 ms P-R-T Axes : 051 020 041 degrees QTc Int : 432 ms Normal sinus rhythm cannot exclude old Inferior infarct , age undetermined Abnormal ECG No previous ECGs available Referred By: Mahsa Orozco Electronically Signed By:ELLYN RECINOS
[2022-09-11 07:45] VITALS: BP 132/73; PULSE 76; RESP 16; TEMP 36.2; O2SAT 98
[2022-09-11] MEDS: HaloperidoL 0.5 MG TABLET PO ×3 (07:58→20:35)
[2022-09-11] MEDS: Omeprazole 20 MG CAPSULE.DR PO (07:58)
[2022-09-11] MEDS: Tamsulosin HCL 0.4 MG CAPSULE PO (07:58)
[2022-09-11] MEDS: Atorvastatin Calcium 40 MG TABLET PO (07:58)
[2022-09-11] MEDS: Thiamine HCL 100 MG TABLET PO (07:58)
[2022-09-11] MEDS: Aspirin Enteric Coated 81 MG TABLET.DR PO (07:59)
[2022-09-11] MEDS: Metoprolol Tartrate 25 MG TABLET PO (07:59)
[2022-09-11] MEDS: Escitalopram Oxalate 10 MG TABLET PO (07:59)
[2022-09-11] MEDS: Losartan Potassium 50 MG TABLET 100 MG PO (08:00)
[2022-09-11] MEDS: polyethylene glycoL 3350 17 GM POWD.PACK PO (08:00)
[2022-09-11] MEDS: Acetaminophen 325 MG TABLET 650 MG PO ×2 (09:24→15:42)
--- NOTE | 2022-09-11 12:08 | HO.PSYCHPN ---
Subjective Subjective Date of Service: 09/11/22 Reason For Visit: psychosis Subjective Notes: Conditional Voluntary Interim History: The nursing staff reported the patient was very anxious last night. He showered and he help is cooperative and compliant with medication. The staff reported the patient complained of bilateral knee pain. The occupational therapist did a [place] he scored 8/30 with a production maintenance technician. Also, his mobility is compromised and he needs help with his Merry Walker. On interview the patient reported that he does not hear any voices since Haldol was started. There is no over-sedation. Today on team we discussed the need of having a family meeting and we will start Aricept 5 mg p.o. q.h.s. to target dementia Mental Status Exam Mental Status Exam Patient Appearance: Appropriate Patient Orientation: Person and Situation Level of Consciousness: Awake and Appropriate Patient Behavior: Cooperative and Passive Mood Description: Withdrawn Affect Description: Constricted Patient Cognition Impaired: Yes Ability to Follow Directions: Good Speech Pattern: Clear Hallucinations: None Delusions: Not Present Thought Process: Distracted and Slowed Thinking Thought Content: positive for [place] and positive for Circumstantial Judgement: Fair Diagnostics Vital Signs (24Hr): Vital Signs - 24 hr 09/10/22 21:22 09/11/22 07:45 Temperature 97.9 F 97.2 F Pulse Rate 75 76 Respiratory Rate 18 16 Blood Pressure 116/71 132/73 Pulse Oximetry 94 98 Oxygen Delivery Method Room Air Room Air Medications Medications Current Medications Acetaminophen (Acetaminophen 325 Mg Tablet) 650 mg PO Q6H PRN PRN Reason: Headache/Pain Mild Scale (1-3) Last Admin: 09/11/22 09:24 Dose: 650 mg Al Hydroxide/Mg Hydroxide (Magnesium Hydrox/Alum Hydrox 30 Ml Oral.Susp) 30 ml PO Q6H PRN PRN Reason: Heartburn/Nausea Albuterol Sulfate (Albuterol Sulfate 90 Mcg 8 Gm Inhaler) 1 puff INHALE RQ4H PRN PRN Reason: Wheezing Aspirin (Aspirin Enteric Coated 81 Mg Tablet.) 81 mg PO DAILY [facility] Last Admin: 09/11/22 07:59 Dose: 81 mg Atorvastatin Calcium (Atorvastatin Calcium 40 Mg Tablet) 40 mg PO DAILY [facility] Last Admin: 09/11/22 07:58 Dose: 40 mg Escitalopram Oxalate (Escitalopram Oxalate 10 Mg Tablet) 10 mg PO DAILY [facility] Last Admin: 01/27/23 07:59 Dose: 10 mg Haloperidol (Haloperidol 0.5 Mg Tablet) 0.5 mg PO TID [facility] Last Admin: 09/11/22 07:58 Dose: 0.5 mg Haloperidol (Haloperidol 0.5 Mg Tablet) 0.5 mg PO BID PRN PRN Reason: psychosis Losartan Potassium (Losartan Potassium 50 Mg Tablet) 100 mg PO DAILY [facility] Last Admin: 09/11/22 08:00 Dose: 100 mg Magnesium Hydroxide (Milk Of Magnesia 30 Ml Oral.Susp) 30 ml PO DAILY PRN PRN Reason: Constipation Metoprolol Tartrate (Metoprolol Tartrate 25 Mg Tablet) 25 mg PO DAILY [facility]; Protocol Last Admin: 09/11/22 07:59 Dose: 25 mg Nitroglycerin (Nitroglycerin 0.4 Mg Tab.Subl) 0 mg SUBLINGUAL Q5MX3 PRN PRN Reason: Chest Pain Non-Formulary Medication (Diclofenac Sodium) 2 gm TOPICAL QID [facility] Non-Formulary Medication (Umeclidinium-Vilanterol) 1 inhalation INHALE DAILY [facility] Omeprazole (Omeprazole 20 Mg Capsule.Dr) 20 mg PO DAILY [facility] Last Admin: 09/11/22 07:58 Dose: 20 mg Polyethylene Glycol (Polyethylene Glycol 3350 17 Gm Powd.Pack) 17 gm PO DAILY [facility] Last Admin: 09/11/22 08:00 Dose: 17 gm Quetiapine Fumarate (Quetiapine Fumarate 25 Mg Tablet) 25 mg PO BEDTIME [facility] Last Admin: 09/10/22 21:20 Dose: 25 mg Tamsulosin HCl (Tamsulosin Hcl 0.4 Mg Capsule) 0.4 mg PO DAILY [facility] Last Admin: 09/11/22 07:58 Dose: 0.4 mg Thiamine HCl (Thiamine Hcl 100 Mg Tablet) 100 mg PO DAILY@0730 [facility] Last Admin: 09/11/22 07:58 Dose: 100 mg Tiotropium [place] (Tiotropium [place] 18 Mcg Cap.W.Dev) 2 puff INHALE RDAILY [facility] Last Admin: 09/11/22 09:22 Dose: 2 puff Trazodone HCl (Trazodone Hcl 50 Mg Tablet) 50 mg PO BEDTIME PRN PRN Reason: Insomnia Allergies Allergies Allergy/AdvReac Type Severity Reaction Status Date / Time No Known Allergies Allergy Verified 09/09/22 18:54 Assessment & Plan Assessment & Plan (1) Routine history and physical examination of adult: Status: Acute Code(s): Z00.00 - Encounter for general adult medical examination without abnormal findings (2) Atypical chest pain: Status: Acute Code(s): R07.89 - Other chest pain Plan Pt is a 72-year-old male with a PMH significant for CAD with [place] x2 (COPD, depression, HTN, HLD, prostate cancer, Chiari malformation, recent rectal bleeding, and recent acute encephalopathy with paranoia and auditory hallucinations who is seen for admission H&P. Atypical chest pain Pt with history of CAD, but pain has been going on for weeks, especially associated with coughing Most likely musculoskeleta: pt not diaphoretic, tachycardic, tachypneic, anterior chest wall tender to palpation Will get EKG for baseline Continue aspirin, statin, metoprolol Chronic back and leg pain Encourage aide-assisted walking with walker in hallway Tylenol, diclofenac gel for pain F/U outpatient with ortho about right knee replacement HLD Continue home meds History of BPH Continue tamsulosin History of abdominal pain and rectal bleeding Patient will f/u outpatient for colonoscopy on 09/25/2022 COPD No wheezing or rhonchi on exam, does not seem in acute exacerbation Continue home inhalers Allergies Hold cetirizine d/t recent acute encephalopathy Thank you for allowing us to participate in the care of this pt. We will follow EKG once done. Please let us know if there are any additional questions or concerns Psychiatry 1. Gather collateral information. 2. Family meeting with the vp digital marketing social media and crm and find out supports and possible discharge planning. 3. Continue Haldol 0.5 mg p.o. t.i.d. to target psychosis. 4. Continue Lexapro 10 mg p.o. q.h.s.. 5. Start Aricept 5 mg p.o. q.h.s. to target dementia Patient educated on: diagnosis Informed Consent: further education needed Reason for contiued inpatient stay Substantial Risk for: inability to function, rapid decompensation and med/psych decompensation Time Spent With Patient Time: Total time managing care of this patient today __20__ minutes.
--- NOTE | 2022-09-11 15:25 | PM.EVENT ---
Event Note Date of Service: 09/11/22 Event Note: Patient's EKG came back showing normal sinus rhythm with no evidence of ST elevations or depressions. Atypical chest pain most likely musculoskeletal, treat per assessment and plan in admission H&P. Thank you for allowing us to participate in the care of this patient. We will sign off at this time. Please contact us again if there are any additional questions or concerns. Time Spent With Patient Time: Total time managing care of this patient today ____ minutes.
[2022-09-11 18:12] VITALS: O2SAT 98
[2022-09-11] MEDS: Donepezil HCl 5 MG TABLET PO (20:35)
[2022-09-11 21:00] VITALS: BP 119/68; PULSE 63; RESP 16; TEMP 36.3; O2SAT 93
[2022-09-12 06:00] VITALS: BP 134/81; PULSE 85; RESP 18; TEMP 36.8; O2SAT 96
--- NOTE | 2022-09-12 08:53 | HO.PSYCHPN ---
Subjective Subjective Date of Service: 09/12/22 Reason For Visit: psychosis Subjective Notes: Conditional Voluntary Interim History: The nursing staff reported the patient has been pleasant and cooperative, he states most of the time of his room. His saturation of oxygen is over 90%, he has COPD. On interview the patient denies new symptoms he denies auditory hallucinations. He denies over-sedation with haloperidol. Mental Status Exam Mental Status Exam Patient Appearance: Appropriate Patient Orientation: Person Level of Consciousness: Awake and Appropriate Patient Behavior: Guarded and Passive Mood Description: Withdrawn Affect Description: Constricted Patient Cognition Impaired: Yes Ability to Follow Directions: Good Speech Pattern: Clear Hallucinations: None Delusions: Not Present Thought Process: Distracted and Slowed Thinking Thought Content: positive for [place], positive for Perseveration and positive for Poverty of Content Judgement: Fair Diagnostics Vital Signs (24Hr): Vital Signs - 24 hr 09/11/22 18:12 09/11/22 21:00 Temperature 97.4 F Pulse Rate 63 Respiratory Rate 16 Blood Pressure 119/68 Pulse Oximetry 98 93 Oxygen Delivery Method Room Air Room Air Medications Medications Current Medications Acetaminophen (Acetaminophen 325 Mg Tablet) 650 mg PO Q6H PRN PRN Reason: Headache/Pain Mild Scale (1-3) Last Admin: 09/11/22 15:42 Dose: 650 mg Al Hydroxide/Mg Hydroxide (Magnesium Hydrox/Alum Hydrox 30 Ml Oral.Susp) 30 ml PO Q6H PRN PRN Reason: Heartburn/Nausea Albuterol Sulfate (Albuterol Sulfate 90 Mcg 8 Gm Inhaler) 1 puff INHALE RQ4H PRN PRN Reason: Wheezing Aspirin (Aspirin Enteric Coated 81 Mg Tablet.) 81 mg PO DAILY [facility] Last Admin: 09/11/22 07:59 Dose: 81 mg Atorvastatin Calcium (Atorvastatin Calcium 40 Mg Tablet) 40 mg PO DAILY [facility] Last Admin: 09/11/22 07:58 Dose: 40 mg Donepezil HCl (Donepezil Hcl 5 Mg Tablet) 5 mg PO BEDTIME [facility] Last Admin: 09/11/22 20:35 Dose: 5 mg Escitalopram Oxalate (Escitalopram Oxalate 10 Mg Tablet) 10 mg PO DAILY [facility] Last Admin: 09/11/22 07:59 Dose: 10 mg Haloperidol (Haloperidol 0.5 Mg Tablet) 0.5 mg PO TID [facility] Last Admin: 09/11/22 20:35 Dose: 0.5 mg Haloperidol (Haloperidol 0.5 Mg Tablet) 0.5 mg PO BID PRN PRN Reason: psychosis Losartan Potassium (Losartan Potassium 50 Mg Tablet) 100 mg PO DAILY [facility] Last Admin: 09/11/22 08:00 Dose: 100 mg Magnesium Hydroxide (Milk Of Magnesia 30 Ml Oral.Susp) 30 ml PO DAILY PRN PRN Reason: Constipation Metoprolol Tartrate (Metoprolol Tartrate 25 Mg Tablet) 25 mg PO DAILY [facility]; Protocol Last Admin: 09/11/22 07:59 Dose: 25 mg Nitroglycerin (Nitroglycerin 0.4 Mg Tab.Subl) 0 mg SUBLINGUAL Q5MX3 PRN PRN Reason: Chest Pain Non-Formulary Medication (Diclofenac Sodium) 2 gm TOPICAL QID [facility] Non-Formulary Medication (Umeclidinium-Vilanterol) 1 inhalation INHALE DAILY [facility] Omeprazole (Omeprazole 20 Mg Capsule.Dr) 20 mg PO DAILY [facility] Last Admin: 09/11/22 07:58 Dose: 20 mg Polyethylene Glycol (Polyethylene Glycol 3350 17 Gm Powd.Pack) 17 gm PO DAILY [facility] Last Admin: 09/11/22 08:00 Dose: 17 gm Tamsulosin HCl (Tamsulosin Hcl 0.4 Mg Capsule) 0.4 mg PO DAILY [facility] Last Admin: 09/11/22 07:58 Dose: 0.4 mg Thiamine HCl (Thiamine Hcl 100 Mg Tablet) 100 mg PO DAILY@0730 [facility] Last Admin: 09/11/22 07:58 Dose: 100 mg Tiotropium [place] (Tiotropium [place] 18 Mcg Cap.W.Dev) 2 puff INHALE RDAILY [facility] Last Admin: 09/11/22 09:22 Dose: 2 puff Trazodone HCl (Trazodone Hcl 50 Mg Tablet) 50 mg PO BEDTIME PRN PRN Reason: Insomnia Allergies Allergies Allergy/AdvReac Type Severity Reaction Status Date / Time No Known Allergies Allergy Verified 09/09/22 18:54 Assessment & Plan Assessment & Plan (1) Routine history and physical examination of adult: Status: Acute Code(s): Z00.00 - Encounter for general adult medical examination without abnormal findings (2) Atypical chest pain: Status: Acute Code(s): R07.89 - Other chest pain Plan Pt is a 72-year-old male with a PMH significant for CAD with [place] x2 (COPD, depression, HTN, HLD, prostate cancer, Chiari malformation, recent rectal bleeding, and recent acute encephalopathy with paranoia and auditory hallucinations who is seen for admission H&P. Atypical chest pain Pt with history of CAD, but pain has been going on for weeks, especially associated with coughing Most likely musculoskeleta: pt not diaphoretic, tachycardic, tachypneic, anterior chest wall tender to palpation Will get EKG for baseline Continue aspirin, statin, metoprolol Chronic back and leg pain Encourage aide-assisted walking with walker in hallway Tylenol, diclofenac gel for pain F/U outpatient with ortho about right knee replacement HLD Continue home meds History of BPH Continue tamsulosin History of abdominal pain and rectal bleeding Patient will f/u outpatient for colonoscopy on 09/25/2022 COPD No wheezing or rhonchi on exam, does not seem in acute exacerbation Continue home inhalers Allergies Hold cetirizine d/t recent acute encephalopathy Thank you for allowing us to participate in the care of this pt. We will follow EKG once done. Please let us know if there are any additional questions or concerns Psychiatry 1. Gather collateral information. 2. Family meeting with the administrator social welfare and find out supports and possible discharge planning. 3. Continue Haldol 0.5 mg p.o. t.i.d. to target psychosis. 4. Continue Lexapro 10 mg p.o. q.h.s.. 5. Start Aricept 5 mg p.o. q.h.s. to target dementia Reason for contiued inpatient stay Substantial Risk for: inability to function, rapid decompensation and med/psych decompensation Time Spent With Patient Time: Total time managing care of this patient today _20___ minutes.
[2022-09-12] MEDS: polyethylene glycoL 3350 17 GM POWD.PACK PO (09:41)
[2022-09-12] MEDS: Atorvastatin Calcium 40 MG TABLET PO (09:42)
[2022-09-12] MEDS: HaloperidoL 0.5 MG TABLET PO ×3 (09:42→20:53)
[2022-09-12] MEDS: Aspirin Enteric Coated 81 MG TABLET.DR PO (09:42)
[2022-09-12] MEDS: Metoprolol Tartrate 25 MG TABLET PO (09:43)
[2022-09-12] MEDS: Escitalopram Oxalate 10 MG TABLET PO (09:43)
[2022-09-12] MEDS: Tamsulosin HCL 0.4 MG CAPSULE PO (09:43)
[2022-09-12] MEDS: Losartan Potassium 50 MG TABLET 100 MG PO (09:43)
[2022-09-12] MEDS: Thiamine HCL 100 MG TABLET PO (09:43)
[2022-09-12] MEDS: Omeprazole 20 MG CAPSULE.DR PO (09:43)
[2022-09-12 18:00] VITALS: BP 166/78; PULSE 56; RESP 16; TEMP 36.1; O2SAT 100
[2022-09-12] MEDS: Donepezil HCl 5 MG TABLET PO (20:53)
[2022-09-13 07:30] VITALS: BP 134/75; PULSE 77; RESP 18; TEMP 36.4; O2SAT 97
--- NOTE | 2022-09-13 09:15 | HO.PSYCHPN ---
Subjective Subjective Date of Service: 09/13/22 Reason For Visit: psychosis Subjective Notes: Conditional Voluntary Interim History: The nursing staff reported the patient states in his room most of the time he had been very quiet. He has COPD but no shortness of breath at this moment, he slept well all night. On interview, the patient denies auditory hallucinations at this moment but he looks anxious and internally preoccupied. He admitted some voices at night. No over-sedation with Haldol 0.5 p.o. t.i.d. We discussed options and he agreed to change the schedule of the Haldol. Mental Status Exam Mental Status Exam Patient Appearance: Appropriate Patient Orientation: Person and Situation Level of Consciousness: Awake and Appropriate Patient Behavior: Guarded, Cooperative and Passive Mood Description: Withdrawn Affect Description: Constricted Patient Cognition Impaired: Yes Ability to Follow Directions: Good Speech Pattern: Clear Hallucinations: None Delusions: Paranoid Ideation Thought Process: Distracted and Slowed Thinking Thought Content: positive for [place] and positive for Circumstantial Judgement: Fair Diagnostics Vital Signs (24Hr): Vital Signs - 24 hr 09/12/22 18:00 Temperature 97 F Pulse Rate 56 Respiratory Rate 16 Blood Pressure 166/78 H Pulse Oximetry 100 Oxygen Delivery Method Room Air Medications Medications Current Medications Acetaminophen (Acetaminophen 325 Mg Tablet) 650 mg PO Q6H PRN PRN Reason: Headache/Pain Mild Scale (1-3) Last Admin: 09/11/22 15:42 Dose: 650 mg Al Hydroxide/Mg Hydroxide (Magnesium Hydrox/Alum Hydrox 30 Ml Oral.Susp) 30 ml PO Q6H PRN PRN Reason: Heartburn/Nausea Albuterol Sulfate (Albuterol Sulfate 90 Mcg 8 Gm Inhaler) 1 puff INHALE RQ4H PRN PRN Reason: Wheezing Aspirin (Aspirin Enteric Coated 81 Mg Tablet.) 81 mg PO DAILY [facility] Last Admin: 09/12/22 09:42 Dose: 81 mg Atorvastatin Calcium (Atorvastatin Calcium 40 Mg Tablet) 40 mg PO DAILY [facility] Last Admin: 09/12/22 09:42 Dose: 40 mg Donepezil HCl (Donepezil Hcl 5 Mg Tablet) 5 mg PO BEDTIME [facility] Last Admin: 09/12/22 20:53 Dose: 5 mg Escitalopram Oxalate (Escitalopram Oxalate 10 Mg Tablet) 10 mg PO DAILY [facility] Last Admin: 09/12/22 09:43 Dose: 10 mg Haloperidol (Haloperidol 0.5 Mg Tablet) 0.5 mg PO TID [facility] Last Admin: 09/12/22 20:53 Dose: 0.5 mg Haloperidol (Haloperidol 0.5 Mg Tablet) 0.5 mg PO BID PRN PRN Reason: psychosis Losartan Potassium (Losartan Potassium 50 Mg Tablet) 100 mg PO DAILY [facility] Last Admin: 09/12/22 09:43 Dose: 100 mg Magnesium Hydroxide (Milk Of Magnesia 30 Ml Oral.Susp) 30 ml PO DAILY PRN PRN Reason: Constipation Metoprolol Tartrate (Metoprolol Tartrate 25 Mg Tablet) 25 mg PO DAILY [facility]; Protocol Last Admin: 09/12/22 09:43 Dose: 25 mg Nitroglycerin (Nitroglycerin 0.4 Mg Tab.Subl) 0 mg SUBLINGUAL Q5MX3 PRN PRN Reason: Chest Pain Non-Formulary Medication (Diclofenac Sodium) 2 gm TOPICAL QID [facility] Non-Formulary Medication (Umeclidinium-Vilanterol) 1 inhalation INHALE DAILY [facility] Omeprazole (Omeprazole 20 Mg Capsule.Dr) 20 mg PO DAILY [facility] Last Admin: 09/12/22 09:43 Dose: 20 mg Polyethylene Glycol (Polyethylene Glycol 3350 17 Gm Powd.Pack) 17 gm PO DAILY [facility] Last Admin: 09/12/22 09:41 Dose: 17 gm Tamsulosin HCl (Tamsulosin Hcl 0.4 Mg Capsule) 0.4 mg PO DAILY [facility] Last Admin: 09/12/22 09:43 Dose: 0.4 mg Thiamine HCl (Thiamine Hcl 100 Mg Tablet) 100 mg PO DAILY@0730 [facility] Last Admin: 09/12/22 09:43 Dose: 100 mg Tiotropium [place] (Tiotropium [place] 18 Mcg Cap.W.Dev) 2 puff INHALE RDAILY [facility] Last Admin: 09/12/22 09:43 Dose: 2 puff Trazodone HCl (Trazodone Hcl 50 Mg Tablet) 50 mg PO BEDTIME PRN PRN Reason: Insomnia Allergies Allergies Allergy/AdvReac Type Severity Reaction Status Date / Time No Known Allergies Allergy Verified 09/09/22 18:54 Assessment & Plan Assessment & Plan (1) Routine history and physical examination of adult: Status: Acute Code(s): Z00.00 - Encounter for general adult medical examination without abnormal findings (2) Atypical chest pain: Status: Acute Code(s): R07.89 - Other chest pain Plan Pt is a 72-year-old male with a PMH significant for CAD with [place] x2 (COPD, depression, HTN, HLD, prostate cancer, Chiari malformation, recent rectal bleeding, and recent acute encephalopathy with paranoia and auditory hallucinations who is seen for admission H&P. Atypical chest pain Pt with history of CAD, but pain has been going on for weeks, especially associated with coughing Most likely musculoskeleta: pt not diaphoretic, tachycardic, tachypneic, anterior chest wall tender to palpation Will get EKG for baseline Continue aspirin, statin, metoprolol Chronic back and leg pain Encourage aide-assisted walking with walker in hallway Tylenol, diclofenac gel for pain F/U outpatient with ortho about right knee replacement HLD Continue home meds History of BPH Continue tamsulosin History of abdominal pain and rectal bleeding Patient will f/u outpatient for colonoscopy on 09/25/2022 COPD No wheezing or rhonchi on exam, does not seem in acute exacerbation Continue home inhalers Allergies Hold cetirizine d/t recent acute encephalopathy Thank you for allowing us to participate in the care of this pt. We will follow EKG once done. Please let us know if there are any additional questions or concerns Psychiatry 1. Gather collateral information. 2. Family meeting with the neonatal social worker and find out supports and possible discharge planning. 3. Continue Haldol 0.5 mg p.o. t.i.d. to target psychosis. On September 13 we change to Haldol 1 mg at 17:00 to target psychosis since the lucent lesions are mostly in the evening. 4. Continue Lexapro 10 mg p.o. q.h.s.. 5. Start Aricept 5 mg p.o. q.h.s. to target dementia . Increase Aricept to 10 mg p.o. q.h.s. on September 13. Informed Consent: understands Reason for contiued inpatient stay Substantial Risk for: inability to function, rapid decompensation and med/psych decompensation Time Spent With Patient Time: Total time managing care of this patient today _20___ minutes.
[2022-09-13] MEDS: Metoprolol Tartrate 25 MG TABLET PO (09:46)
[2022-09-13] MEDS: Escitalopram Oxalate 10 MG TABLET PO (09:47)
[2022-09-13] MEDS: Aspirin Enteric Coated 81 MG TABLET.DR PO (09:47)
[2022-09-13] MEDS: Omeprazole 20 MG CAPSULE.DR PO (09:47)
[2022-09-13] MEDS: Tamsulosin HCL 0.4 MG CAPSULE PO (09:47)
[2022-09-13] MEDS: Thiamine HCL 100 MG TABLET PO (09:47)
[2022-09-13] MEDS: Losartan Potassium 50 MG TABLET 100 MG PO (09:47)
[2022-09-13] MEDS: Atorvastatin Calcium 40 MG TABLET PO (09:47)
[2022-09-13] MEDS: HaloperidoL 0.5 MG TABLET PO (09:47)
[2022-09-13] MEDS: polyethylene glycoL 3350 17 GM POWD.PACK PO (10:03)
[2022-09-13] MEDS: HaloperidoL 1 MG TABLET PO (16:53)
[2022-09-13 18:00] VITALS: BP 144/76; PULSE 61; RESP 16; TEMP 36.2; O2SAT 98
[2022-09-13] MEDS: Donepezil HCl 10 MG TABLET PO (20:40)
[2022-09-14 06:00] VITALS: BP 116/65; PULSE 72; RESP 17; TEMP 37.1; O2SAT 96
--- NOTE | 2022-09-14 06:51 | HO.PSYCHPN ---
Subjective Subjective Date of Service: 09/14/22 Reason For Visit: psychosis Subjective Notes: [place] Warning and Conditional Voluntary Interim History: The nursing staff reported the patient had been compliant with treatment, he has stating his room most of the day, he states that he is very tired. On interview the patient reports that he has sporadic auditory hallucinations mostly at night. It is likely that his hallucinations are in clear correlation with saturation of oxygen since he has COPD. So far no evidence of EPS with Haldol that has been changed only at 17:00 to preventing hallucinations at night. Mental Status Exam Mental Status Exam Patient Appearance: Appropriate Patient Orientation: Person and Situation Level of Consciousness: Awake and Appropriate Patient Behavior: Guarded and Cooperative Mood Description: Calm Affect Description: Blunted Patient Cognition Impaired: Yes Ability to Follow Directions: Good Speech Pattern: Clear Hallucinations: Auditory and Visual Delusions: Paranoid Ideation Thought Process: Distracted and Slowed Thinking Thought Content: positive for [place] and positive for Circumstantial Judgement: Fair Diagnostics Vital Signs (24Hr): Vital Signs - 24 hr 09/13/22 07:30 09/13/22 18:00 Temperature 97.6 F 97.2 F Pulse Rate 77 61 Respiratory Rate 18 16 Blood Pressure 134/75 144/76 H Pulse Oximetry 97 98 Oxygen Delivery Method Room Air Room Air Medications Medications Current Medications Acetaminophen (Acetaminophen 325 Mg Tablet) 650 mg PO Q6H PRN PRN Reason: Headache/Pain Mild Scale (1-3) Last Admin: 09/11/22 15:42 Dose: 650 mg Al Hydroxide/Mg Hydroxide (Magnesium Hydrox/Alum Hydrox 30 Ml Oral.Susp) 30 ml PO Q6H PRN PRN Reason: Heartburn/Nausea Albuterol Sulfate (Albuterol Sulfate 90 Mcg 8 Gm Inhaler) 1 puff INHALE RQ4H PRN PRN Reason: Wheezing Aspirin (Aspirin Enteric Coated 81 Mg Tablet.) 81 mg PO DAILY [facility] Last Admin: 09/13/22 09:47 Dose: 81 mg Atorvastatin Calcium (Atorvastatin Calcium 40 Mg Tablet) 40 mg PO DAILY [facility] Last Admin: 09/13/22 09:47 Dose: 40 mg Donepezil HCl (Donepezil Hcl 10 Mg Tablet) 10 mg PO BEDTIME [facility] Last Admin: 09/13/22 20:40 Dose: 10 mg Escitalopram Oxalate (Escitalopram Oxalate 10 Mg Tablet) 10 mg PO DAILY [facility] Last Admin: 09/13/22 09:47 Dose: 10 mg Haloperidol (Haloperidol 0.5 Mg Tablet) 0.5 mg PO BID PRN PRN Reason: psychosis Haloperidol (Haloperidol 1 Mg Tablet) 1 mg PO DAILY@1700 [facility] Last Admin: 09/13/22 16:53 Dose: 1 mg Losartan Potassium (Losartan Potassium 50 Mg Tablet) 100 mg PO DAILY [facility] Last Admin: 09/13/22 09:47 Dose: 100 mg Magnesium Hydroxide (Milk Of Magnesia 30 Ml Oral.Susp) 30 ml PO DAILY PRN PRN Reason: Constipation Metoprolol Tartrate (Metoprolol Tartrate 25 Mg Tablet) 25 mg PO DAILY [facility]; Protocol Last Admin: 09/13/22 09:46 Dose: 25 mg Nitroglycerin (Nitroglycerin 0.4 Mg Tab.Subl) 0 mg SUBLINGUAL Q5MX3 PRN PRN Reason: Chest Pain Non-Formulary Medication (Diclofenac Sodium) 2 gm TOPICAL QID [facility] Non-Formulary Medication (Umeclidinium-Vilanterol) 1 inhalation INHALE DAILY [facility] Omeprazole (Omeprazole 20 Mg Capsule.Dr) 20 mg PO DAILY [facility] Last Admin: 09/13/22 09:47 Dose: 20 mg Polyethylene Glycol (Polyethylene Glycol 3350 17 Gm Powd.Pack) 17 gm PO DAILY [facility] Last Admin: 09/13/22 10:03 Dose: 17 gm Tamsulosin HCl (Tamsulosin Hcl 0.4 Mg Capsule) 0.4 mg PO DAILY [facility] Last Admin: 09/13/22 09:47 Dose: 0.4 mg Thiamine HCl (Thiamine Hcl 100 Mg Tablet) 100 mg PO DAILY@0730 [facility] Last Admin: 09/13/22 09:47 Dose: 100 mg Tiotropium [place] (Tiotropium [place] 18 Mcg Cap.W.Dev) 2 puff INHALE RDAILY [facility] Last Admin: 09/13/22 10:03 Dose: 2 puff Trazodone HCl (Trazodone Hcl 50 Mg Tablet) 50 mg PO BEDTIME PRN PRN Reason: Insomnia Allergies Allergies Allergy/AdvReac Type Severity Reaction Status Date / Time No Known Allergies Allergy Verified 09/09/22 18:54 Assessment & Plan Assessment & Plan (1) Routine history and physical examination of adult: Status: Acute Code(s): Z00.00 - Encounter for general adult medical examination without abnormal findings (2) Atypical chest pain: Status: Acute Code(s): R07.89 - Other chest pain Plan Pt is a 72-year-old male with a PMH significant for CAD with [place] x2 (COPD, depression, HTN, HLD, prostate cancer, Chiari malformation, recent rectal bleeding, and recent acute encephalopathy with paranoia and auditory hallucinations who is seen for admission H&P. Atypical chest pain Pt with history of CAD, but pain has been going on for weeks, especially associated with coughing Most likely musculoskeleta: pt not diaphoretic, tachycardic, tachypneic, anterior chest wall tender to palpation Will get EKG for baseline Continue aspirin, statin, metoprolol Chronic back and leg pain Encourage aide-assisted walking with walker in hallway Tylenol, diclofenac gel for pain F/U outpatient with ortho about right knee replacement HLD Continue home meds History of BPH Continue tamsulosin History of abdominal pain and rectal bleeding Patient will f/u outpatient for colonoscopy on 09/25/2022 COPD No wheezing or rhonchi on exam, does not seem in acute exacerbation Continue home inhalers Allergies Hold cetirizine d/t recent acute encephalopathy Thank you for allowing us to participate in the care of this pt. We will follow EKG once done. Please let us know if there are any additional questions or concerns Psychiatry 1. Gather collateral information. 2. Family meeting with the social media community manager and find out supports and possible discharge planning. 3. Continue Haldol 0.5 mg p.o. t.i.d. to target psychosis. On September 13 we change to Haldol 1 mg at 17:00 to target psychosis since the lucent lesions are mostly in the evening. 4. Continue Lexapro 10 mg p.o. q.h.s.. 5. Start Aricept 5 mg p.o. q.h.s. to target dementia . Increase Aricept to 10 mg p.o. q.h.s. on September 13. Reason for contiued inpatient stay Substantial Risk for: inability to function, rapid decompensation and med/psych decompensation Time Spent With Patient Time: Total time managing care of this patient today _20___ minutes.
[2022-09-14] MEDS: Atorvastatin Calcium 40 MG TABLET PO (09:15)
[2022-09-14] MEDS: Omeprazole 20 MG CAPSULE.DR PO (09:15)
[2022-09-14] MEDS: Escitalopram Oxalate 10 MG TABLET PO (09:15)
[2022-09-14] MEDS: Metoprolol Tartrate 25 MG TABLET PO (09:15)
[2022-09-14] MEDS: Losartan Potassium 50 MG TABLET 100 MG PO (09:15)
[2022-09-14] MEDS: Tamsulosin HCL 0.4 MG CAPSULE PO (09:15)
[2022-09-14] MEDS: Aspirin Enteric Coated 81 MG TABLET.DR PO (09:15)
[2022-09-14] MEDS: Thiamine HCL 100 MG TABLET PO (09:15)
[2022-09-14] MEDS: polyethylene glycoL 3350 17 GM POWD.PACK PO (10:03)
[2022-09-14] MEDS: HaloperidoL 1 MG TABLET PO (17:28)
[2022-09-14 18:00] VITALS: BP 135/73; PULSE 62; RESP 17; TEMP 36.1; O2SAT 98
[2022-09-14] MEDS: Acetaminophen 325 MG TABLET 650 MG PO (20:54)
[2022-09-14] MEDS: Donepezil HCl 10 MG TABLET PO (22:51)
[2022-09-15 06:00] VITALS: BP 138/70; PULSE 70; RESP 18; TEMP 36.7; O2SAT 98
--- NOTE | 2022-09-15 07:41 | P.PNPSI_ITS ---
Subjective Subjective Date of Service: 09/15/22 Reason For Visit: psychosis Subjective Notes: Conditional Voluntary Interim History: The nursing staff reported the patient had a shower yesterday, he remains most of the time in his bed, isolative. The patient speaks only [place] and he has very limited [place] and probably language barrier is the problem that does not allow him to socialize. On interview the patient denied auditory hallucinations but he complained of exacerbation of depression and anxiety.. No evidence of EPS, tolerating very well Haldol at 17:00. Mental Status Exam Mental Status Exam Patient Appearance: Well Grooomed and Appropriate Patient Orientation: Person and Situation Level of Consciousness: Awake and Appropriate Patient Behavior: Guarded and Passive Mood Description: Withdrawn Affect Description: Constricted Patient Cognition Impaired: Yes Ability to Follow Directions: Good Speech Pattern: Clear Hallucinations: Auditory Delusions: Paranoid Ideation Thought Process: Distracted and Slowed Thinking Thought Content: positive for [place] and positive for Circumstantial Judgement: Fair Diagnostics Vital Signs (24Hr): Vital Signs - 24 hr 09/14/22 18:00 Temperature 97 F Pulse Rate 62 Respiratory Rate 17 Blood Pressure 135/73 Pulse Oximetry 98 Oxygen Delivery Method Room Air Medications Medications Current Medications Acetaminophen (Acetaminophen 325 Mg Tablet) 650 mg PO Q6H PRN PRN Reason: Headache/Pain Mild Scale (1-3) Last Admin: 09/14/22 20:54 Dose: 650 mg Al Hydroxide/Mg Hydroxide (Magnesium Hydrox/Alum Hydrox 30 Ml Oral.Susp) 30 ml PO Q6H PRN PRN Reason: Heartburn/Nausea Albuterol Sulfate (Albuterol Sulfate 90 Mcg 8 Gm Inhaler) 1 puff INHALE RQ4H PRN PRN Reason: Wheezing Albuterol Sulfate (Albuterol Sulfate 90 Mcg 8 Gm Inhaler) 2 puff INHALE RQ6H PRN PRN Reason: asthma attack Aspirin (Aspirin Enteric Coated 81 Mg Tablet.Dr) 81 mg PO DAILY [facility] Last Admin: 09/14/22 09:15 Dose: 81 mg Atorvastatin Calcium (Atorvastatin Calcium 40 Mg Tablet) 40 mg PO DAILY [facility] Last Admin: 09/14/22 09:15 Dose: 40 mg Donepezil HCl (Donepezil Hcl 10 Mg Tablet) 10 mg PO BEDTIME [facility] Last Admin: 09/14/22 22:51 Dose: 10 mg Escitalopram Oxalate (Escitalopram Oxalate 10 Mg Tablet) 10 mg PO DAILY [facility] Last Admin: 09/14/22 09:15 Dose: 10 mg Haloperidol (Haloperidol 0.5 Mg Tablet) 0.5 mg PO BID PRN PRN Reason: psychosis Haloperidol (Haloperidol 1 Mg Tablet) 1 mg PO DAILY@1700 [facility] Last Admin: 09/14/22 17:28 Dose: 1 mg Losartan Potassium (Losartan Potassium 50 Mg Tablet) 100 mg PO DAILY [facility] Last Admin: 09/14/22 09:15 Dose: 100 mg Magnesium Hydroxide (Milk Of Magnesia 30 Ml Oral.Susp) 30 ml PO DAILY PRN PRN Reason: Constipation Metoprolol Tartrate (Metoprolol Tartrate 25 Mg Tablet) 25 mg PO DAILY [facility]; Protocol Last Admin: 09/14/22 09:15 Dose: 25 mg Nitroglycerin (Nitroglycerin 0.4 Mg Tab.Subl) 0 mg SUBLINGUAL Q5MX3 PRN PRN Reason: Chest Pain Non-Formulary Medication (Diclofenac Sodium) 2 gm TOPICAL QID [facility] Non-Formulary Medication (Umeclidinium-Vilanterol) 1 inhalation INHALE DAILY [facility] Omeprazole (Omeprazole 20 Mg Capsule.Dr) 20 mg PO DAILY [facility] Last Admin: 09/14/22 09:15 Dose: 20 mg Polyethylene Glycol (Polyethylene Glycol 3350 17 Gm Powd.Pack) 17 gm PO DAILY [facility] Last Admin: 09/14/22 10:03 Dose: 17 gm Tamsulosin HCl (Tamsulosin Hcl 0.4 Mg Capsule) 0.4 mg PO DAILY [facility] Last Admin: 09/14/22 09:15 Dose: 0.4 mg Thiamine HCl (Thiamine Hcl 100 Mg Tablet) 100 mg PO DAILY@0730 [facility] Last Admin: 09/14/22 09:15 Dose: 100 mg Tiotropium [place] (Tiotropium [place] 18 Mcg Cap.W.Dev) 2 puff INHALE RDAILY [facility] Last Admin: 09/14/22 10:03 Dose: 2 puff Trazodone HCl (Trazodone Hcl 50 Mg Tablet) 50 mg PO BEDTIME PRN PRN Reason: Insomnia Allergies Allergies Allergy/AdvReac Type Severity Reaction Status Date / Time No Known Allergies Allergy Verified 09/09/22 18:54 Assessment & Plan Assessment & Plan (1) Routine history and physical examination of adult: Status: Acute Code(s): Z00.00 - Encounter for general adult medical examination without abnormal findings (2) Atypical chest pain: Status: Acute Code(s): R07.89 - Other chest pain Plan Pt is a 72-year-old male with a PMH significant for CAD with [place] x2 (COPD, depression, HTN, HLD, prostate cancer, Chiari malformation, recent rectal bleeding, and recent acute encephalopathy with paranoia and auditory hallucinations who is seen for admission H&P. Atypical chest pain Pt with history of CAD, but pain has been going on for weeks, especially associated with coughing Most likely musculoskeleta: pt not diaphoretic, tachycardic, tachypneic, anterior chest wall tender to palpation Will get EKG for baseline Continue aspirin, statin, metoprolol Chronic back and leg pain Encourage aide-assisted walking with walker in hallway Tylenol, diclofenac gel for pain F/U outpatient with ortho about right knee replacement HLD Continue home meds History of BPH Continue tamsulosin History of abdominal pain and rectal bleeding Patient will f/u outpatient for colonoscopy on 09/25/2022 COPD No wheezing or rhonchi on exam, does not seem in acute exacerbation Continue home inhalers Allergies Hold cetirizine d/t recent acute encephalopathy Thank you for allowing us to participate in the care of this pt. We will follow EKG once done. Please let us know if there are any additional questions or concerns Psychiatry 1. Gather collateral information. 2. Family meeting with the manager social services and find out supports and possible discharge planning. 3. Continue Haldol 0.5 mg p.o. t.i.d. to target psychosis. On September 13 we change to Haldol 1 mg at 17:00 to target psychosis since the hallucinations are mostly in the evening. 4. Continue Lexapro 10 mg p.o. q.h.s.. Lexapro was increased up to 15 mg on September 15 5. Start Aricept 5 mg p.o. q.h.s. to target dementia . Increase Aricept to 10 mg p.o. q.h.s. on September 13. Reason for contiued inpatient stay Substantial Risk for: inability to function, rapid decompensation and med/psych decompensation Time Spent With Patient Time: Total time managing care of this patient today _20___ minutes.
[2022-09-15] MEDS: Thiamine HCL 100 MG TABLET PO (09:14)
[2022-09-15] MEDS: Aspirin Enteric Coated 81 MG TABLET.DR PO (09:14)
[2022-09-15] MEDS: Omeprazole 20 MG CAPSULE.DR PO (09:14)
[2022-09-15] MEDS: Metoprolol Tartrate 25 MG TABLET PO (09:14)
[2022-09-15] MEDS: Tamsulosin HCL 0.4 MG CAPSULE PO (09:14)
[2022-09-15] MEDS: Losartan Potassium 50 MG TABLET 100 MG PO (09:14)
[2022-09-15] MEDS: Atorvastatin Calcium 40 MG TABLET PO (09:14)
[2022-09-15] MEDS: Escitalopram Oxalate 10 MG TABLET PO (09:14)
[2022-09-15] MEDS: polyethylene glycoL 3350 17 GM POWD.PACK PO (09:15)
[2022-09-15 18:00] VITALS: BP 150/75; PULSE 67; RESP 18; TEMP 36.4; O2SAT 98
[2022-09-15] MEDS: HaloperidoL 1 MG TABLET PO (20:15)
[2022-09-15] MEDS: Donepezil HCl 10 MG TABLET PO (20:15)
[2022-09-16 06:00] VITALS: BP 113/57; PULSE 58; RESP 16; TEMP 36.3; O2SAT 98
--- NOTE | 2022-09-16 08:07 | P.PNPSI_ITS ---
Subjective Subjective Date of Service: 09/16/22 Reason For Visit: psychosis Subjective Notes: Conditional Voluntary Interim History: The nursing staff reported the patient has been compliant with medications. The staff has noticed that he states most of the time in his room but last afternoon participated on group activities. On interview the patient reported auditory hallucinations in the evening and night. He is still depressed, yesterday we increased his Lexapro up to 15 mg p.o. daily. Mental Status Exam Mental Status Exam Patient Appearance: Appropriate Patient Orientation: Person and Situation Level of Consciousness: Awake and Appropriate Patient Behavior: Guarded and Passive Mood Description: Withdrawn and Depressed Affect Description: Constricted Patient Cognition Impaired: Yes Ability to Follow Directions: Good Speech Pattern: Clear Hallucinations: None Delusions: Not Present Thought Process: Linear and Slowed Thinking Thought Content: positive for Circumstantial Judgement: Fair Diagnostics Vital Signs (24Hr): Vital Signs - 24 hr 09/15/22 18:00 Temperature 97.5 F Pulse Rate 67 Respiratory Rate 18 Blood Pressure 150/75 H Pulse Oximetry 98 Oxygen Delivery Method Room Air Medications Medications Current Medications Acetaminophen (Acetaminophen 325 Mg Tablet) 650 mg PO Q6H PRN PRN Reason: Headache/Pain Mild Scale (1-3) Last Admin: 09/14/22 20:54 Dose: 650 mg Al Hydroxide/Mg Hydroxide (Magnesium Hydrox/Alum Hydrox 30 Ml Oral.Susp) 30 ml PO Q6H PRN PRN Reason: Heartburn/Nausea Albuterol Sulfate (Albuterol Sulfate 90 Mcg 8 Gm Inhaler) 1 puff INHALE RQ4H PRN PRN Reason: Wheezing Albuterol Sulfate (Albuterol Sulfate 90 Mcg 8 Gm Inhaler) 2 puff INHALE RQ6H PRN PRN Reason: asthma attack Aspirin (Aspirin Enteric Coated 81 Mg Tablet.) 81 mg PO DAILY [facility] Last Admin: 09/15/22 09:14 Dose: 81 mg Atorvastatin Calcium (Atorvastatin Calcium 40 Mg Tablet) 40 mg PO DAILY [facility] Last Admin: 09/15/22 09:14 Dose: 40 mg Donepezil HCl (Donepezil Hcl 10 Mg Tablet) 10 mg PO BEDTIME [facility] Last Admin: 09/15/22 20:15 Dose: 10 mg Escitalopram Oxalate (Escitalopram Oxalate 5 Mg Tablet) 15 mg PO DAILY [facility] Haloperidol (Haloperidol 0.5 Mg Tablet) 0.5 mg PO BID PRN PRN Reason: psychosis Haloperidol (Haloperidol 1 Mg Tablet) 1 mg PO DAILY@1700 [facility] Last Admin: 09/16/22 07:52 Dose: Not Given Losartan Potassium (Losartan Potassium 50 Mg Tablet) 100 mg PO DAILY [facility] Last Admin: 09/15/22 09:14 Dose: 100 mg Magnesium Hydroxide (Milk Of Magnesia 30 Ml Oral.Susp) 30 ml PO DAILY PRN PRN Reason: Constipation Metoprolol Tartrate (Metoprolol Tartrate 25 Mg Tablet) 25 mg PO DAILY [facility]; Protocol Last Admin: 09/15/22 09:14 Dose: 25 mg Nitroglycerin (Nitroglycerin 0.4 Mg Tab.Subl) 0 mg SUBLINGUAL Q5MX3 PRN PRN Reason: Chest Pain Non-Formulary Medication (Diclofenac Sodium) 2 gm TOPICAL QID [facility] Non-Formulary Medication (Umeclidinium-Vilanterol) 1 inhalation INHALE DAILY [facility] Omeprazole (Omeprazole 20 Mg Capsule.Dr) 20 mg PO DAILY [facility] Last Admin: 09/15/22 09:14 Dose: 20 mg Polyethylene Glycol (Polyethylene Glycol 3350 17 Gm Powd.Pack) 17 gm PO DAILY [facility] Last Admin: 09/15/22 09:15 Dose: 17 gm Tamsulosin HCl (Tamsulosin Hcl 0.4 Mg Capsule) 0.4 mg PO DAILY [facility] Last Admin: 09/15/22 09:14 Dose: 0.4 mg Thiamine HCl (Thiamine Hcl 100 Mg Tablet) 100 mg PO DAILY@0730 [facility] Last Admin: 09/15/22 09:14 Dose: 100 mg Tiotropium [place] (Tiotropium [place] 18 Mcg Cap.W.Dev) 2 puff INHALE RDAILY [facility] Last Admin: 09/15/22 09:14 Dose: 2 puff Trazodone HCl (Trazodone Hcl 50 Mg Tablet) 50 mg PO BEDTIME PRN PRN Reason: Insomnia Allergies Allergies Allergy/AdvReac Type Severity Reaction Status Date / Time No Known Allergies Allergy Verified 09/09/22 18:54 Assessment & Plan Assessment & Plan (1) Routine history and physical examination of adult: Status: Acute Code(s): Z00.00 - Encounter for general adult medical examination without abnormal findings (2) Atypical chest pain: Status: Acute Code(s): R07.89 - Other chest pain Plan Pt is a 72-year-old male with a PMH significant for CAD with [place] x2 (COPD, depression, HTN, HLD, prostate cancer, Chiari malformation, recent rectal bleeding, and recent acute encephalopathy with paranoia and auditory hallucinations who is seen for admission H&P. Atypical chest pain Pt with history of CAD, but pain has been going on for weeks, especially associated with coughing Most likely musculoskeleta: pt not diaphoretic, tachycardic, tachypneic, anterior chest wall tender to palpation Will get EKG for baseline Continue aspirin, statin, metoprolol Chronic back and leg pain Encourage aide-assisted walking with walker in hallway Tylenol, diclofenac gel for pain F/U outpatient with ortho about right knee replacement HLD Continue home meds History of BPH Continue tamsulosin History of abdominal pain and rectal bleeding Patient will f/u outpatient for colonoscopy on 09/25/2022 COPD No wheezing or rhonchi on exam, does not seem in acute exacerbation Continue home inhalers Allergies Hold cetirizine d/t recent acute encephalopathy Thank you for allowing us to participate in the care of this pt. We will follow EKG once done. Please let us know if there are any additional questions or concerns Psychiatry 1. Gather collateral information. 2. Family meeting with the social worker assistant and find out supports and possible discharge planning. 3. Continue Haldol 0.5 mg p.o. t.i.d. to target psychosis. On September 13 we change to Haldol 1 mg at 17:00 to target psychosis since the hallucinations are mostly in the evening. 4. Continue Lexapro 10 mg p.o. q.h.s.. Lexapro was increased up to 15 mg on September 15 5. Start Aricept 5 mg p.o. q.h.s. to target dementia . Increase Aricept to 10 mg p.o. q.h.s. on September 13. 6. Start Namenda 5 mg p.o. b.i.d. to target dementia Reason for contiued inpatient stay Substantial Risk for: inability to function, rapid decompensation and med/psych decompensation Time Spent With Patient Time: Total time managing care of this patient today _20___ minutes.
[2022-09-16] MEDS: Tamsulosin HCL 0.4 MG CAPSULE PO (09:51)
[2022-09-16] MEDS: Thiamine HCL 100 MG TABLET PO (09:51)
[2022-09-16] MEDS: Escitalopram Oxalate 5 MG TABLET 15 MG PO (09:51)
[2022-09-16] MEDS: Omeprazole 20 MG CAPSULE.DR PO (09:51)
[2022-09-16] MEDS: Aspirin Enteric Coated 81 MG TABLET.DR PO (09:51)
[2022-09-16] MEDS: Memantine HCl 5 MG TABLET PO ×2 (09:52→19:49)
[2022-09-16] MEDS: Atorvastatin Calcium 40 MG TABLET PO (09:53)
[2022-09-16] MEDS: Losartan Potassium 50 MG TABLET 100 MG PO (09:53)
[2022-09-16] MEDS: polyethylene glycoL 3350 17 GM POWD.PACK PO (10:46)
[2022-09-16] MEDS: HaloperidoL 1 MG TABLET PO (17:24)
[2022-09-16 18:00] VITALS: BP 141/67; PULSE 69; RESP 18; TEMP 36.8; O2SAT 98
[2022-09-16] MEDS: Donepezil HCl 10 MG TABLET PO (19:49)
--- NOTE | 2022-09-17 07:53 | HO.PSYCHPN ---
Subjective Subjective Date of Service: 09/17/22 Reason For Visit: psychosis Subjective Notes: Conditional Voluntary Interim History: The nursing staff reported the patient had been compliant with treatment, he has being slightly more visible in the unit. The ocupational therapist reported that he scored 8/30 and Andrea test 4.0 On interview the patient reports no more auditory hallucinations, he reported that he feels slightly better. Mental Status Exam Mental Status Exam Patient Appearance: Appropriate Patient Orientation: Person and Situation Level of Consciousness: Awake and Appropriate Mood Description: Withdrawn Affect Description: Constricted Patient Cognition Impaired: Yes Ability to Follow Directions: Good Speech Pattern: Clear Hallucinations: Auditory Delusions: Paranoid Ideation Thought Process: Distracted and Slowed Thinking Thought Content: positive for [place] and positive for [place] of Content Judgement: Fair Diagnostics Vital Signs (24Hr): Vital Signs - 24 hr 09/16/22 18:00 Temperature 98.2 F Pulse Rate 69 Respiratory Rate 18 Blood Pressure 141/67 H Pulse Oximetry 98 Oxygen Delivery Method Room Air Medications Medications Current Medications Acetaminophen (Acetaminophen 325 Mg Tablet) 650 mg PO Q6H PRN PRN Reason: Headache/Pain Mild Scale (1-3) Last Admin: 09/14/22 20:54 Dose: 650 mg Al Hydroxide/Mg Hydroxide (Magnesium Hydrox/Alum Hydrox 30 Ml Oral.Susp) 30 ml PO Q6H PRN PRN Reason: Heartburn/Nausea Albuterol Sulfate (Albuterol Sulfate 90 Mcg 8 Gm Inhaler) 1 puff INHALE RQ4H PRN PRN Reason: Wheezing Albuterol Sulfate (Albuterol Sulfate 90 Mcg 8 Gm Inhaler) 2 puff INHALE RQ6H PRN PRN Reason: asthma attack Aspirin (Aspirin Enteric Coated 81 Mg Tablet.) 81 mg PO DAILY [facility] Last Admin: 09/16/22 09:51 Dose: 81 mg Atorvastatin Calcium (Atorvastatin Calcium 40 Mg Tablet) 40 mg PO DAILY [facility] Last Admin: 09/16/22 09:53 Dose: 40 mg Donepezil HCl (Donepezil Hcl 10 Mg Tablet) 10 mg PO BEDTIME [facility] Last Admin: 09/16/22 19:49 Dose: 10 mg Escitalopram Oxalate (Escitalopram Oxalate 5 Mg Tablet) 15 mg PO DAILY [facility] Last Admin: 09/16/22 09:51 Dose: 15 mg Haloperidol (Haloperidol 0.5 Mg Tablet) 0.5 mg PO BID PRN PRN Reason: psychosis Haloperidol (Haloperidol 1 Mg Tablet) 1 mg PO DAILY@1700 [facility] Last Admin: 09/16/22 17:24 Dose: 1 mg Losartan Potassium (Losartan Potassium 50 Mg Tablet) 100 mg PO DAILY [facility] Last Admin: 09/16/22 09:53 Dose: 100 mg Magnesium Hydroxide (Milk Of Magnesia 30 Ml Oral.Susp) 30 ml PO DAILY PRN PRN Reason: Constipation Memantine (Memantine Hcl 5 Mg Tablet) 5 mg PO BID [facility] Last Admin: 09/16/22 19:49 Dose: 5 mg Metoprolol Tartrate (Metoprolol Tartrate 25 Mg Tablet) 25 mg PO DAILY [facility]; Protocol Last Admin: 09/16/22 09:53 Dose: Not Given Nitroglycerin (Nitroglycerin 0.4 Mg Tab.Subl) 0 mg SUBLINGUAL Q5MX3 PRN PRN Reason: Chest Pain Non-Formulary Medication (Diclofenac Sodium) 2 gm TOPICAL QID [facility] Non-Formulary Medication (Umeclidinium-Vilanterol) 1 inhalation INHALE DAILY [facility] Omeprazole (Omeprazole 20 Mg Capsule.Dr) 20 mg PO DAILY [facility] Last Admin: 09/16/22 09:51 Dose: 20 mg Polyethylene Glycol (Polyethylene Glycol 3350 17 Gm Powd.Pack) 17 gm PO DAILY [facility] Last Admin: 09/16/22 10:46 Dose: 17 gm Tamsulosin HCl (Tamsulosin Hcl 0.4 Mg Capsule) 0.4 mg PO DAILY [facility] Last Admin: 09/16/22 09:51 Dose: 0.4 mg Thiamine HCl (Thiamine Hcl 100 Mg Tablet) 100 mg PO DAILY@0730 [facility] Last Admin: 09/16/22 09:51 Dose: 100 mg Tiotropium [place] (Tiotropium [place] 18 Mcg Cap.W.Dev) 2 puff INHALE RDAILY [facility] Last Admin: 09/16/22 10:51 Dose: 2 puff Trazodone HCl (Trazodone Hcl 50 Mg Tablet) 50 mg PO BEDTIME PRN PRN Reason: Insomnia Allergies Allergies Allergy/AdvReac Type Severity Reaction Status Date / Time No Known Allergies Allergy Verified 09/09/22 18:54 Assessment & Plan Assessment & Plan (1) Routine history and physical examination of adult: Status: Acute Code(s): Z00.00 - Encounter for general adult medical examination without abnormal findings (2) Atypical chest pain: Status: Acute Code(s): R07.89 - Other chest pain Plan Pt is a 72-year-old male with a PMH significant for CAD with [place] x2 (COPD, depression, HTN, HLD, prostate cancer, Chiari malformation, recent rectal bleeding, and recent acute encephalopathy with paranoia and auditory hallucinations who is seen for admission H&P. Atypical chest pain Pt with history of CAD, but pain has been going on for weeks, especially associated with coughing Most likely musculoskeleta: pt not diaphoretic, tachycardic, tachypneic, anterior chest wall tender to palpation Will get EKG for baseline Continue aspirin, statin, metoprolol Chronic back and leg pain Encourage aide-assisted walking with walker in hallway Tylenol, diclofenac gel for pain F/U outpatient with ortho about right knee replacement HLD Continue home meds History of BPH Continue tamsulosin History of abdominal pain and rectal bleeding Patient will f/u outpatient for colonoscopy on 09/25/2022 COPD No wheezing or rhonchi on exam, does not seem in acute exacerbation Continue home inhalers Allergies Hold cetirizine d/t recent acute encephalopathy Thank you for allowing us to participate in the care of this pt. We will follow EKG once done. Please let us know if there are any additional questions or concerns Psychiatry 1. Gather collateral information. 2. Family meeting with the foster care social worker and find out supports and possible discharge planning. 3. Continue Haldol 0.5 mg p.o. t.i.d. to target psychosis. On September 13 we change to Haldol 1 mg at 17:00 to target psychosis since the hallucinations are mostly in the evening. 4. Continue Lexapro 10 mg p.o. q.h.s.. Lexapro was increased up to 15 mg on September 15 5. Start Aricept 5 mg p.o. q.h.s. to target dementia . Increase Aricept to 10 mg p.o. q.h.s. on September 13. 6. Start Namenda 5 mg p.o. b.i.d. to target dementia Reason for contiued inpatient stay Substantial Risk for: inability to function, rapid decompensation and med/psych decompensation Time Spent With Patient Time: Total time managing care of this patient today __20__ minutes.
[2022-09-17 08:30] VITALS: BP 133/65; PULSE 66; RESP 18; TEMP 36.6; O2SAT 98
[2022-09-17] MEDS: Escitalopram Oxalate 5 MG TABLET 15 MG PO (09:20)
[2022-09-17] MEDS: Omeprazole 20 MG CAPSULE.DR PO (09:21)
[2022-09-17] MEDS: Aspirin Enteric Coated 81 MG TABLET.DR PO (09:21)
[2022-09-17] MEDS: Thiamine HCL 100 MG TABLET PO (09:22)
[2022-09-17] MEDS: Tamsulosin HCL 0.4 MG CAPSULE PO (09:22)
[2022-09-17] MEDS: Memantine HCl 5 MG TABLET PO ×2 (09:23→20:17)
[2022-09-17] MEDS: Losartan Potassium 50 MG TABLET 100 MG PO (09:23)
[2022-09-17] MEDS: Metoprolol Tartrate 25 MG TABLET PO (09:23)
[2022-09-17] MEDS: Atorvastatin Calcium 40 MG TABLET PO (09:23)
[2022-09-17] MEDS: HaloperidoL 1 MG TABLET PO ×2 (16:26→20:17)
[2022-09-17 18:00] VITALS: BP 120/58; PULSE 66; RESP 18; TEMP 36.3; O2SAT 96
[2022-09-17] MEDS: Donepezil HCl 10 MG TABLET PO (20:17)
[2022-09-18 07:30] VITALS: BP 130/63; PULSE 60; RESP 16; TEMP 36.2; O2SAT 100
[2022-09-18] MEDS: Thiamine HCL 100 MG TABLET PO (09:53)
[2022-09-18] MEDS: Atorvastatin Calcium 40 MG TABLET PO (09:53)
[2022-09-18] MEDS: Escitalopram Oxalate 5 MG TABLET 15 MG PO (09:53)
[2022-09-18] MEDS: Metoprolol Tartrate 25 MG TABLET PO (09:53)
[2022-09-18] MEDS: Losartan Potassium 50 MG TABLET 100 MG PO (09:53)
[2022-09-18] MEDS: Omeprazole 20 MG CAPSULE.DR PO (09:53)
[2022-09-18] MEDS: Memantine HCl 5 MG TABLET PO (09:54)
[2022-09-18] MEDS: polyethylene glycoL 3350 17 GM POWD.PACK PO (09:54)
[2022-09-18] MEDS: Tamsulosin HCL 0.4 MG CAPSULE PO (09:54)
[2022-09-18] MEDS: Aspirin Enteric Coated 81 MG TABLET.DR PO (09:55)
--- NOTE | 2022-09-18 14:27 | P.PNPSI_ITS ---
Subjective Subjective Date of Service: 09/18/22 Reason For Visit: psychosis Subjective Notes: Conditional Voluntary Interim History: The nursing staff reported the patient had been compliant with treatment, he has been seen participating in engageable on groups and other unit activities. His affect looks brighter. On interview the patient reports that he did not have auditory hallucinations last night, his affect looks better since Lexapro has not improved but still dysphoric. We also discussed about his short-term memory and his dementia he agreed to increase Namenda to 10 mg p.o. b.i.d.. So far, he is on Aricept and Namenda Mental Status Exam Mental Status Exam Patient Appearance: Well Grooomed and Appropriate Patient Orientation: Person and Situation Level of Consciousness: Awake and Appropriate Patient Behavior: Guarded and Cooperative Mood Description: Withdrawn and Constricted Affect Description: Calm Patient Cognition Impaired: Yes Ability to Follow Directions: Good Speech Pattern: Clear Hallucinations: None Delusions: Not Present Thought Process: Distracted and Slowed Thinking Thought Content: positive for [place] and positive for Circumstantial Judgement: Fair Diagnostics Vital Signs (24Hr): Vital Signs - 24 hr 09/17/22 18:00 09/18/22 07:30 Temperature 97.4 F 97.2 F Pulse Rate 66 60 Respiratory Rate 18 16 Blood Pressure 120/58 L 130/63 Pulse Oximetry 96 100 Oxygen Delivery Method Room Air Room Air Medications Medications Current Medications Acetaminophen (Acetaminophen 325 Mg Tablet) 650 mg PO Q6H PRN PRN Reason: Headache/Pain Mild Scale (1-3) Last Admin: 09/14/22 20:54 Dose: 650 mg Al Hydroxide/Mg Hydroxide (Magnesium Hydrox/Alum Hydrox 30 Ml Oral.Susp) 30 ml PO Q6H PRN PRN Reason: Heartburn/Nausea Albuterol Sulfate (Albuterol Sulfate 90 Mcg 8 Gm Inhaler) 1 puff INHALE RQ4H PRN PRN Reason: Wheezing Albuterol Sulfate (Albuterol Sulfate 90 Mcg 8 Gm Inhaler) 2 puff INHALE RQ6H PRN PRN Reason: asthma attack Aspirin (Aspirin Enteric Coated 81 Mg Tablet.) 81 mg PO DAILY [facility] Last Admin: 09/18/22 09:55 Dose: 81 mg Atorvastatin Calcium (Atorvastatin Calcium 40 Mg Tablet) 40 mg PO DAILY [facility] Last Admin: 09/18/22 09:53 Dose: 40 mg Donepezil HCl (Donepezil Hcl 10 Mg Tablet) 10 mg PO BEDTIME [facility] Last Admin: 09/17/22 20:17 Dose: 10 mg Escitalopram Oxalate (Escitalopram Oxalate 5 Mg Tablet) 15 mg PO DAILY [facility] Last Admin: 09/18/22 09:53 Dose: 15 mg Haloperidol (Haloperidol 0.5 Mg Tablet) 0.5 mg PO BID PRN PRN Reason: psychosis Haloperidol (Haloperidol 1 Mg Tablet) 1 mg PO DAILY@1700 [facility] Last Admin: 09/17/22 16:26 Dose: 1 mg Haloperidol (Haloperidol 1 Mg Tablet) 1 mg PO BEDTIME [facility] Last Admin: 09/17/22 20:17 Dose: 1 mg Losartan Potassium (Losartan Potassium 50 Mg Tablet) 100 mg PO DAILY [facility] Last Admin: 09/18/22 09:53 Dose: 100 mg Magnesium Hydroxide (Milk Of Magnesia 30 Ml Oral.Susp) 30 ml PO DAILY PRN PRN Reason: Constipation Memantine (Memantine Hcl 10 Mg Tablet) 10 mg PO BID [facility] Metoprolol Tartrate (Metoprolol Tartrate 25 Mg Tablet) 25 mg PO DAILY [facility]; Protocol Last Admin: 09/18/22 09:53 Dose: 25 mg Nitroglycerin (Nitroglycerin 0.4 Mg Tab.Subl) 0 mg SUBLINGUAL Q5MX3 PRN PRN Reason: Chest Pain Non-Formulary Medication (Diclofenac Sodium) 2 gm TOPICAL QID [facility] Non-Formulary Medication (Umeclidinium-Vilanterol) 1 inhalation INHALE DAILY [facility] Omeprazole (Omeprazole 20 Mg Capsule.Dr) 20 mg PO DAILY [facility] Last Admin: 09/18/22 09:53 Dose: 20 mg Polyethylene Glycol (Polyethylene Glycol 3350 17 Gm Powd.Pack) 17 gm PO DAILY [facility] Last Admin: 09/18/22 09:54 Dose: 17 gm Tamsulosin HCl (Tamsulosin Hcl 0.4 Mg Capsule) 0.4 mg PO DAILY [facility] Last Admin: 09/18/22 09:54 Dose: 0.4 mg Thiamine HCl (Thiamine Hcl 100 Mg Tablet) 100 mg PO DAILY@0730 [facility] Last Admin: 09/18/22 09:53 Dose: 100 mg Tiotropium [place] (Tiotropium [place] 18 Mcg Cap.W.Dev) 2 puff INHALE RDAILY [facility] Last Admin: 09/18/22 09:58 Dose: 2 puff Trazodone HCl (Trazodone Hcl 50 Mg Tablet) 50 mg PO BEDTIME PRN PRN Reason: Insomnia Allergies Allergies Allergy/AdvReac Type Severity Reaction Status Date / Time No Known Allergies Allergy Verified 09/09/22 18:54 Assessment & Plan Assessment & Plan (1) Routine history and physical examination of adult: Status: Acute Code(s): Z00.00 - Encounter for general adult medical examination without abnormal findings (2) Atypical chest pain: Status: Acute Code(s): R07.89 - Other chest pain Plan Pt is a 72-year-old male with a PMH significant for CAD with [place] x2 (COPD, depression, HTN, HLD, prostate cancer, Chiari malformation, recent rectal bleeding, and recent acute encephalopathy with paranoia and auditory hallucinations who is seen for admission H&P. Atypical chest pain Pt with history of CAD, but pain has been going on for weeks, especially associated with coughing Most likely musculoskeleta: pt not diaphoretic, tachycardic, tachypneic, anterior chest wall tender to palpation Will get EKG for baseline Continue aspirin, statin, metoprolol Chronic back and leg pain Encourage aide-assisted walking with walker in hallway Tylenol, diclofenac gel for pain F/U outpatient with ortho about right knee replacement HLD Continue home meds History of BPH Continue tamsulosin History of abdominal pain and rectal bleeding Patient will f/u outpatient for colonoscopy on 09/25/2022 COPD No wheezing or rhonchi on exam, does not seem in acute exacerbation Continue home inhalers Allergies Hold cetirizine d/t recent acute encephalopathy Thank you for allowing us to participate in the care of this pt. We will follow EKG once done. Please let us know if there are any additional questions or concerns Psychiatry 1. Gather collateral information. 2. Family meeting with the social sciences professor and find out supports and possible discharge planning. 3. Continue Haldol 0.5 mg p.o. t.i.d. to target psychosis. On September 13 we change to Haldol 1 mg at 17:00 to target psychosis since the hallucinations are mostly in the evening. 4. Continue Lexapro 10 mg p.o. q.h.s.. Lexapro was increased up to 15 mg on September 15 5. Start Aricept 5 mg p.o. q.h.s. to target dementia . Increase Aricept to 10 mg p.o. q.h.s. on September 13 6. Start Namenda 5 mg p.o. b.i.d. to target dementia, it has increased up to 10 mg p.o. b.i.d. on September 18. Reason for contiued inpatient stay Substantial Risk for: inability to function, rapid decompensation and med/psych decompensation Time Spent With Patient Time: Total time managing care of this patient today _20___ minutes.
[2022-09-18] MEDS: HaloperidoL 1 MG TABLET PO ×2 (16:43→21:06)
[2022-09-18 18:00] VITALS: BP 137/65; PULSE 59; RESP 18; TEMP 36.3; O2SAT 98
[2022-09-18] MEDS: Memantine HCl 10 MG TABLET PO (21:05)
[2022-09-18] MEDS: Donepezil HCl 10 MG TABLET PO (21:05)
[2022-09-19] MEDS: Memantine HCl 10 MG TABLET PO ×2 (09:11→21:20)
[2022-09-19] MEDS: Omeprazole 20 MG CAPSULE.DR PO (09:11)
[2022-09-19] MEDS: Escitalopram Oxalate 5 MG TABLET 15 MG PO (09:11)
[2022-09-19] MEDS: Atorvastatin Calcium 40 MG TABLET PO (09:12)
[2022-09-19] MEDS: Aspirin Enteric Coated 81 MG TABLET.DR PO (09:12)
[2022-09-19] MEDS: Thiamine HCL 100 MG TABLET PO (09:12)
[2022-09-19] MEDS: Tamsulosin HCL 0.4 MG CAPSULE PO (09:12)
[2022-09-19] MEDS: Losartan Potassium 50 MG TABLET 100 MG PO (09:12)
[2022-09-19 09:19] VITALS: BP 136/63; PULSE 58; RESP 16; TEMP 36.4; O2SAT 97
[2022-09-19 10:53] VITALS: BP 138/72; PULSE 58; O2SAT 97
--- NOTE | 2022-09-19 11:51 | HO.PSYCHPN ---
Subjective Subjective Date of Service: 09/19/22 Reason For Visit: psychosis Interim History: calm, cooperative. initially has no complaints or requests, but on subsequent questioning states he has had some chest tightness since taking his inhaler this morning and he is feeling a bit anxious. RN requested to check VS again. per staff, depression and psychosis. no psychosis now. desaturates into the 80s sometimes due to pulmonary disease. getting lots of sleep these days. Mental Status Exam Mental Status Exam Patient Appearance: Well Grooomed and Appropriate Patient Orientation: Person and Situation Level of Consciousness: Awake and Appropriate Patient Behavior: Guarded and Cooperative Mood Description: Withdrawn and Constricted Affect Description: Calm Patient Cognition Impaired: Yes Ability to Follow Directions: Good Speech Pattern: Clear Hallucinations: None Delusions: Not Present Thought Process: Distracted and Slowed Thinking Thought Content: positive for [place] and positive for Circumstantial Judgement: Fair Diagnostics Vital Signs (24Hr): Vital Signs - 24 hr 09/18/22 18:00 09/19/22 09:19 09/19/22 10:53 Temperature 97.3 F 97.6 F Pulse Rate 59 58 58 Respiratory Rate 18 16 Blood Pressure 137/65 136/63 138/72 Pulse Oximetry 98 97 97 Oxygen Delivery Method Room Air Room Air Room Air Medications Medications Current Medications Acetaminophen (Acetaminophen 325 Mg Tablet) 650 mg PO Q6H PRN PRN Reason: Headache/Pain Mild Scale (1-3) Last Admin: 09/14/22 20:54 Dose: 650 mg Al Hydroxide/Mg Hydroxide (Magnesium Hydrox/Alum Hydrox 30 Ml Oral.Susp) 30 ml PO Q6H PRN PRN Reason: Heartburn/Nausea Albuterol Sulfate (Albuterol Sulfate 90 Mcg 8 Gm Inhaler) 1 puff INHALE RQ4H PRN PRN Reason: Wheezing Albuterol Sulfate (Albuterol Sulfate 90 Mcg 8 Gm Inhaler) 2 puff INHALE RQ6H PRN PRN Reason: asthma attack Aspirin (Aspirin Enteric Coated 81 Mg Tablet.) 81 mg PO DAILY [facility] Last Admin: 09/19/22 09:12 Dose: 81 mg Atorvastatin Calcium (Atorvastatin Calcium 40 Mg Tablet) 40 mg PO DAILY [facility] Last Admin: 09/19/22 09:12 Dose: 40 mg Donepezil HCl (Donepezil Hcl 10 Mg Tablet) 10 mg PO BEDTIME [facility] Last Admin: 09/18/22 21:05 Dose: 10 mg Escitalopram Oxalate (Escitalopram Oxalate 5 Mg Tablet) 15 mg PO DAILY [facility] Last Admin: 09/19/22 09:11 Dose: 15 mg Haloperidol (Haloperidol 0.5 Mg Tablet) 0.5 mg PO BID PRN PRN Reason: psychosis Haloperidol (Haloperidol 1 Mg Tablet) 1 mg PO DAILY@1700 [facility] Last Admin: 09/18/22 16:43 Dose: 1 mg Haloperidol (Haloperidol 1 Mg Tablet) 1 mg PO BEDTIME [facility] Last Admin: 09/18/22 21:06 Dose: 1 mg Losartan Potassium (Losartan Potassium 50 Mg Tablet) 100 mg PO DAILY [facility] Last Admin: 09/19/22 09:12 Dose: 100 mg Magnesium Hydroxide (Milk Of Magnesia 30 Ml Oral.Susp) 30 ml PO DAILY PRN PRN Reason: Constipation Memantine (Memantine Hcl 10 Mg Tablet) 10 mg PO BID [facility] Last Admin: 09/19/22 09:11 Dose: 10 mg Metoprolol Tartrate (Metoprolol Tartrate 25 Mg Tablet) 25 mg PO DAILY [facility]; Protocol Last Admin: 09/19/22 10:15 Dose: Not Given Nitroglycerin (Nitroglycerin 0.4 Mg Tab.Subl) 0 mg SUBLINGUAL Q5MX3 PRN PRN Reason: Chest Pain Non-Formulary Medication (Diclofenac Sodium) 2 gm TOPICAL QID [facility] Non-Formulary Medication (Umeclidinium-Vilanterol) 1 inhalation INHALE DAILY [facility] Omeprazole (Omeprazole 20 Mg Capsule.Dr) 20 mg PO DAILY [facility] Last Admin: 09/19/22 09:11 Dose: 20 mg Polyethylene Glycol (Polyethylene Glycol 3350 17 Gm Powd.Pack) 17 gm PO DAILY [facility] Last Admin: 09/19/22 10:14 Dose: Not Given Tamsulosin HCl (Tamsulosin Hcl 0.4 Mg Capsule) 0.4 mg PO DAILY [facility] Last Admin: 09/19/22 09:12 Dose: 0.4 mg Thiamine HCl (Thiamine Hcl 100 Mg Tablet) 100 mg PO DAILY@0730 [facility] Last Admin: 09/19/22 09:12 Dose: 100 mg Tiotropium [place] (Tiotropium [place] 18 Mcg Cap.W.Dev) 2 puff INHALE RDAILY [facility] Last Admin: 09/19/22 09:12 Dose: 2 puff Trazodone HCl (Trazodone Hcl 50 Mg Tablet) 50 mg PO BEDTIME PRN PRN Reason: Insomnia Allergies Allergies Allergy/AdvReac Type Severity Reaction Status Date / Time No Known Allergies Allergy Verified 09/09/22 18:54 Assessment & Plan Assessment & Plan (1) Routine history and physical examination of adult: Status: Acute Code(s): Z00.00 - Encounter for general adult medical examination without abnormal findings (2) Atypical chest pain: Status: Acute Code(s): R07.89 - Other chest pain Plan Pt is a 72-year-old male with a PMH significant for CAD with [place] x2 (COPD, depression, HTN, HLD, prostate cancer, Chiari malformation, recent rectal bleeding, and recent acute encephalopathy with paranoia and auditory hallucinations who is seen for admission H&P. Atypical chest pain Pt with history of CAD, but pain has been going on for weeks, especially associated with coughing Most likely musculoskeleta: pt not diaphoretic, tachycardic, tachypneic, anterior chest wall tender to palpation Will get EKG for baseline Continue aspirin, statin, metoprolol Chronic back and leg pain Encourage aide-assisted walking with walker in hallway Tylenol, diclofenac gel for pain F/U outpatient with ortho about right knee replacement HLD Continue home meds History of BPH Continue tamsulosin History of abdominal pain and rectal bleeding Patient will f/u outpatient for colonoscopy on 09/25/2022 COPD No wheezing or rhonchi on exam, does not seem in acute exacerbation Continue home inhalers Allergies Hold cetirizine d/t recent acute encephalopathy Thank you for allowing us to participate in the care of this pt. We will follow EKG once done. Please let us know if there are any additional questions or concerns Psychiatry 1. Gather collateral information. 2. Family meeting with the social media marketer and find out supports and possible discharge planning. 3. Continue Haldol 0.5 mg p.o. t.i.d. to target psychosis. On September 13 we change to Haldol 1 mg at 17:00 to target psychosis since the hallucinations are mostly in the evening. 4. Continue Lexapro 10 mg p.o. q.h.s.. Lexapro was increased up to 15 mg on September 15 5. Start Aricept 5 mg p.o. q.h.s. to target dementia . Increase Aricept to 10 mg p.o. q.h.s. on September 13. Start Namenda 5 mg p.o. b.i.d. to target dementia, it has increased up to 10 mg p.o. b.i.d. on September 18. 09/19: c/o some chest tightness. continue current mgmt. Reason for contiued inpatient stay Substantial Risk for: inability to function and rapid decompensation Time Spent With Patient Time: Total time managing care of this patient today ____ minutes.
[2022-09-19] MEDS: HaloperidoL 1 MG TABLET PO ×2 (16:33→21:20)
[2022-09-19 18:00] VITALS: BP 130/80; PULSE 61; RESP 16; TEMP 36.6; O2SAT 97
[2022-09-19] MEDS: Donepezil HCl 10 MG TABLET PO (21:20)
[2022-09-20 06:00] VITALS: BP 131/75; PULSE 63; RESP 16; TEMP 36.2; O2SAT 96
[2022-09-20] MEDS: Memantine HCl 10 MG TABLET PO ×2 (08:50→20:11)
[2022-09-20] MEDS: Aspirin Enteric Coated 81 MG TABLET.DR PO (08:50)
[2022-09-20] MEDS: Omeprazole 20 MG CAPSULE.DR PO (08:50)
[2022-09-20] MEDS: Escitalopram Oxalate 5 MG TABLET 15 MG PO (08:50)
[2022-09-20] MEDS: Atorvastatin Calcium 40 MG TABLET PO (08:50)
[2022-09-20] MEDS: polyethylene glycoL 3350 17 GM POWD.PACK PO (08:51)
[2022-09-20] MEDS: Thiamine HCL 100 MG TABLET PO (08:51)
[2022-09-20] MEDS: Losartan Potassium 50 MG TABLET 100 MG PO (08:51)
[2022-09-20] MEDS: Tamsulosin HCL 0.4 MG CAPSULE PO (08:51)
[2022-09-20] MEDS: Metoprolol Tartrate 25 MG TABLET PO (08:51)
--- NOTE | 2022-09-20 11:09 | P.PNPSI_ITS ---
Subjective Subjective Date of Service: 09/20/22 Reason For Visit: psychosis Interim History: seen ambulating in [place] using walker. seen with nigerian-speaking staff. pt denies any problems, states he needs nothing from MD today. reports he is sleeping, eating, toileting fine. per staff, taking meds and eating meals. slept 7 hours. no changes in presentation. Mental Status Exam Mental Status Exam Patient Appearance: Well Grooomed and Appropriate Patient Orientation: Person and Situation Level of Consciousness: Awake and Appropriate Patient Behavior: Guarded and Cooperative Mood Description: Withdrawn and Constricted Affect Description: Calm Patient Cognition Impaired: Yes Ability to Follow Directions: Good Speech Pattern: Clear Hallucinations: None Delusions: Not Present Thought Process: Distracted and Slowed Thinking Thought Content: positive for [place] and positive for Circumstantial Judgement: Fair Diagnostics Vital Signs (24Hr): Vital Signs - 24 hr 09/19/22 18:00 09/20/22 06:00 Temperature 97.9 F 97.1 F Pulse Rate 61 63 Respiratory Rate 16 16 Blood Pressure 130/80 131/75 Pulse Oximetry 97 96 Oxygen Delivery Method Room Air Room Air Medications Medications Current Medications Acetaminophen (Acetaminophen 325 Mg Tablet) 650 mg PO Q6H PRN PRN Reason: Headache/Pain Mild Scale (1-3) Last Admin: 09/14/22 20:54 Dose: 650 mg Al Hydroxide/Mg Hydroxide (Magnesium Hydrox/Alum Hydrox 30 Ml Oral.Susp) 30 ml PO Q6H PRN PRN Reason: Heartburn/Nausea Albuterol Sulfate (Albuterol Sulfate 90 Mcg 8 Gm Inhaler) 1 puff INHALE RQ4H PRN PRN Reason: Wheezing Albuterol Sulfate (Albuterol Sulfate 90 Mcg 8 Gm Inhaler) 2 puff INHALE RQ6H PRN PRN Reason: asthma attack Aspirin (Aspirin Enteric Coated 81 Mg Tablet.) 81 mg PO DAILY [facility] Last Admin: 09/20/22 08:50 Dose: 81 mg Atorvastatin Calcium (Atorvastatin Calcium 40 Mg Tablet) 40 mg PO DAILY [facility] Last Admin: 09/20/22 08:50 Dose: 40 mg Donepezil HCl (Donepezil Hcl 10 Mg Tablet) 10 mg PO BEDTIME [facility] Last Admin: 09/19/22 21:20 Dose: 10 mg Escitalopram Oxalate (Escitalopram Oxalate 5 Mg Tablet) 15 mg PO DAILY [facility] Last Admin: 09/20/22 08:50 Dose: 15 mg Haloperidol (Haloperidol 0.5 Mg Tablet) 0.5 mg PO BID PRN PRN Reason: psychosis Haloperidol (Haloperidol 1 Mg Tablet) 1 mg PO DAILY@1700 [facility] Last Admin: 09/19/22 16:33 Dose: 1 mg Haloperidol (Haloperidol 1 Mg Tablet) 1 mg PO BEDTIME [facility] Last Admin: 09/19/22 21:20 Dose: 1 mg Losartan Potassium (Losartan Potassium 50 Mg Tablet) 100 mg PO DAILY [facility] Last Admin: 09/20/22 08:51 Dose: 100 mg Magnesium Hydroxide (Milk Of Magnesia 30 Ml Oral.Susp) 30 ml PO DAILY PRN PRN Reason: Constipation Memantine (Memantine Hcl 10 Mg Tablet) 10 mg PO BID [facility] Last Admin: 09/20/22 08:50 Dose: 10 mg Metoprolol Tartrate (Metoprolol Tartrate 25 Mg Tablet) 25 mg PO DAILY [facility]; Protocol Last Admin: 09/20/22 08:51 Dose: 25 mg Nitroglycerin (Nitroglycerin 0.4 Mg Tab.Subl) 0 mg SUBLINGUAL Q5MX3 PRN PRN Reason: Chest Pain Non-Formulary Medication (Diclofenac Sodium) 2 gm TOPICAL QID [facility] Non-Formulary Medication (Umeclidinium-Vilanterol) 1 inhalation INHALE DAILY [facility] Omeprazole (Omeprazole 20 Mg Capsule.Dr) 20 mg PO DAILY [facility] Last Admin: 09/20/22 08:50 Dose: 20 mg Polyethylene Glycol (Polyethylene Glycol 3350 17 Gm Powd.Pack) 17 gm PO DAILY [facility] Last Admin: 09/20/22 08:51 Dose: 17 gm Tamsulosin HCl (Tamsulosin Hcl 0.4 Mg Capsule) 0.4 mg PO DAILY [facility] Last Admin: 09/20/22 08:51 Dose: 0.4 mg Thiamine HCl (Thiamine Hcl 100 Mg Tablet) 100 mg PO DAILY@0730 [facility] Last Admin: 09/20/22 08:51 Dose: 100 mg Tiotropium [place] (Tiotropium [place] 18 Mcg Cap.W.Dev) 2 puff INHALE RDAILY [facility] Last Admin: 09/20/22 10:17 Dose: 2 puff Trazodone HCl (Trazodone Hcl 50 Mg Tablet) 50 mg PO BEDTIME PRN PRN Reason: Insomnia Allergies Allergies Allergy/AdvReac Type Severity Reaction Status Date / Time No Known Allergies Allergy Verified 09/09/22 18:54 Assessment & Plan Assessment & Plan (1) Routine history and physical examination of adult: Status: Acute Code(s): Z00.00 - Encounter for general adult medical examination without abnormal findings (2) Atypical chest pain: Status: Acute Code(s): R07.89 - Other chest pain Plan Pt is a 72-year-old male with a PMH significant for CAD with [place] x2 (COPD, depression, HTN, HLD, prostate cancer, Chiari malformation, recent rectal bleeding, and recent acute encephalopathy with paranoia and auditory hallucinations who is seen for admission H&P. Atypical chest pain Pt with history of CAD, but pain has been going on for weeks, especially associated with coughing Most likely musculoskeleta: pt not diaphoretic, tachycardic, tachypneic, anterior chest wall tender to palpation Will get EKG for baseline Continue aspirin, statin, metoprolol Chronic back and leg pain Encourage aide-assisted walking with walker in hallway Tylenol, diclofenac gel for pain F/U outpatient with ortho about right knee replacement HLD Continue home meds History of BPH Continue tamsulosin History of abdominal pain and rectal bleeding Patient will f/u outpatient for colonoscopy on 09/25/2022 COPD No wheezing or rhonchi on exam, does not seem in acute exacerbation Continue home inhalers Allergies Hold cetirizine d/t recent acute encephalopathy Thank you for allowing us to participate in the care of this pt. We will follow EKG once done. Please let us know if there are any additional questions or concerns Psychiatry 1. Gather collateral information. 2. Family meeting with the protective services social worker and find out supports and possible discharge planning. 3. Continue Haldol 0.5 mg p.o. t.i.d. to target psychosis. On September 13 we change to Haldol 1 mg at 17:00 to target psychosis since the hallucinations are mostly in the evening. 4. Continue Lexapro 10 mg p.o. q.h.s.. Lexapro was increased up to 15 mg on September 15 5. Start Aricept 5 mg p.o. q.h.s. to target dementia . Increase Aricept to 10 mg p.o. q.h.s. on September 13. 6. Start Namenda 5 mg p.o. b.i.d. to target dementia, it has increased up to 10 mg p.o. b.i.d. on September 18. 09/19: c/o some chest tightness. continue current mgmt. 09/20: calm, cooperative, denies any problems. no requests. continue current mgmt. Reason for contiued inpatient stay Substantial Risk for: inability to function and rapid decompensation Time Spent With Patient Time: Total time managing care of this patient today ____ minutes.
[2022-09-20] MEDS: HaloperidoL 1 MG TABLET PO ×2 (17:15→20:11)
[2022-09-20 18:00] VITALS: BP 126/58; PULSE 62; RESP 18; TEMP 36.6; O2SAT 97
[2022-09-20] MEDS: Donepezil HCl 10 MG TABLET PO (20:11)
[2022-09-21 10:00] VITALS: BP 138/64; PULSE 67; RESP 16; TEMP 36.5; O2SAT 94
[2022-09-21] MEDS: Losartan Potassium 50 MG TABLET 100 MG PO (10:09)
[2022-09-21] MEDS: Atorvastatin Calcium 40 MG TABLET PO (10:09)
[2022-09-21] MEDS: Memantine HCl 10 MG TABLET PO ×2 (10:09→20:33)
[2022-09-21] MEDS: Thiamine HCL 100 MG TABLET PO (10:09)
[2022-09-21] MEDS: Aspirin Enteric Coated 81 MG TABLET.DR PO (10:09)
[2022-09-21] MEDS: Escitalopram Oxalate 5 MG TABLET 15 MG PO (10:10)
[2022-09-21] MEDS: Omeprazole 20 MG CAPSULE.DR PO (10:10)
[2022-09-21] MEDS: Metoprolol Tartrate 25 MG TABLET PO (10:10)
[2022-09-21] MEDS: Tamsulosin HCL 0.4 MG CAPSULE PO (10:10)
[2022-09-21] MEDS: Albuterol Sulfate 90 MCG 8 GM INHALER 2 PUFF INHALE (10:53)
--- NOTE | 2022-09-21 12:33 | HO.PSYCHPN ---
Subjective Subjective Date of Service: 09/21/22 Reason For Visit: psychosis Subjective Notes: Conditional Voluntary Interim History: The nursing staff reported the patient's appetite have improved, he had been sleeping better and he was able to be in the common areas more time. Yesterday he was on the phone and he was talking to his brothers. The occupational therapist reported that he has been participating in groups. On interview the patient reports mild improvement of his depression and anxiety, he stills and dysphoria no side effects. I explained him that I ask started on Aricept and Namenda to make sure that his cognition does not worsen. Mental Status Exam Mental Status Exam Patient Appearance: Well Grooomed Patient Orientation: Person and Situation Level of Consciousness: Awake and Appropriate Patient Behavior: Guarded and Cooperative Mood Description: Withdrawn Affect Description: Constricted Patient Cognition Impaired: Yes Ability to Follow Directions: Good Speech Pattern: Clear Hallucinations: None Delusions: Not Present Thought Process: Distracted Thought Content: positive for [place] and positive for Circumstantial Judgement: Fair Diagnostics Vital Signs (24Hr): Vital Signs - 24 hr 09/20/22 18:00 09/21/22 10:00 Temperature 97.9 F 97.7 F Pulse Rate 62 67 Respiratory Rate 18 16 Blood Pressure 126/58 L 138/64 Pulse Oximetry 97 94 Oxygen Delivery Method Room Air Room Air Medications Medications Current Medications Acetaminophen (Acetaminophen 325 Mg Tablet) 650 mg PO Q6H PRN PRN Reason: Headache/Pain Mild Scale (1-3) Last Admin: 09/14/22 20:54 Dose: 650 mg Al Hydroxide/Mg Hydroxide (Magnesium Hydrox/Alum Hydrox 30 Ml Oral.Susp) 30 ml PO Q6H PRN PRN Reason: Heartburn/Nausea Albuterol Sulfate (Albuterol Sulfate 90 Mcg 8 Gm Inhaler) 1 puff INHALE RQ4H PRN PRN Reason: Wheezing Albuterol Sulfate (Albuterol Sulfate 90 Mcg 8 Gm Inhaler) 2 puff INHALE RQ6H PRN PRN Reason: asthma attack Last Admin: 09/21/22 10:53 Dose: 2 puff Aspirin (Aspirin Enteric Coated 81 Mg Tablet.) 81 mg PO DAILY [facility] Last Admin: 09/21/22 10:09 Dose: 81 mg Atorvastatin Calcium (Atorvastatin Calcium 40 Mg Tablet) 40 mg PO DAILY [facility] Last Admin: 09/21/22 10:09 Dose: 40 mg Donepezil HCl (Donepezil Hcl 10 Mg Tablet) 10 mg PO BEDTIME [facility] Last Admin: 09/20/22 20:11 Dose: 10 mg Escitalopram Oxalate (Escitalopram Oxalate 5 Mg Tablet) 15 mg PO DAILY [facility] Last Admin: 09/21/22 10:10 Dose: 15 mg Haloperidol (Haloperidol 0.5 Mg Tablet) 0.5 mg PO BID PRN PRN Reason: psychosis Haloperidol (Haloperidol 1 Mg Tablet) 1 mg PO DAILY@1700 [facility] Last Admin: 09/20/22 17:15 Dose: 1 mg Haloperidol (Haloperidol 1 Mg Tablet) 1 mg PO BEDTIME [facility] Last Admin: 09/20/22 20:11 Dose: 1 mg Losartan Potassium (Losartan Potassium 50 Mg Tablet) 100 mg PO DAILY [facility] Last Admin: 09/21/22 10:09 Dose: 100 mg Magnesium Hydroxide (Milk Of Magnesia 30 Ml Oral.Susp) 30 ml PO DAILY PRN PRN Reason: Constipation Memantine (Memantine Hcl 10 Mg Tablet) 10 mg PO BID [facility] Last Admin: 09/21/22 10:09 Dose: 10 mg Metoprolol Tartrate (Metoprolol Tartrate 25 Mg Tablet) 25 mg PO DAILY [facility]; Protocol Last Admin: 09/21/22 10:10 Dose: 25 mg Nitroglycerin (Nitroglycerin 0.4 Mg Tab.Subl) 0 mg SUBLINGUAL Q5MX3 PRN PRN Reason: Chest Pain Non-Formulary Medication (Diclofenac Sodium) 2 gm TOPICAL QID [facility] Non-Formulary Medication (Umeclidinium-Vilanterol) 1 inhalation INHALE DAILY [facility] Omeprazole (Omeprazole 20 Mg Capsule.Dr) 20 mg PO DAILY [facility] Last Admin: 09/21/22 10:10 Dose: 20 mg Polyethylene Glycol (Polyethylene Glycol 3350 17 Gm Powd.Pack) 17 gm PO DAILY [facility] Last Admin: 09/21/22 11:23 Dose: Not Given Tamsulosin HCl (Tamsulosin Hcl 0.4 Mg Capsule) 0.4 mg PO DAILY [facility] Last Admin: 09/21/22 10:10 Dose: 0.4 mg Thiamine HCl (Thiamine Hcl 100 Mg Tablet) 100 mg PO DAILY@0730 [facility] Last Admin: 09/21/22 10:09 Dose: 100 mg Tiotropium [place] (Tiotropium [place] 18 Mcg Cap.W.Dev) 2 puff INHALE RDAILY [facility] Last Admin: 09/21/22 10:55 Dose: 2 puff Trazodone HCl (Trazodone Hcl 50 Mg Tablet) 50 mg PO BEDTIME PRN PRN Reason: Insomnia Allergies Allergies Allergy/AdvReac Type Severity Reaction Status Date / Time No Known Allergies Allergy Verified 09/09/22 18:54 Assessment & Plan Assessment & Plan (1) Routine history and physical examination of adult: Status: Acute Code(s): Z00.00 - Encounter for general adult medical examination without abnormal findings (2) Atypical chest pain: Status: Acute Code(s): R07.89 - Other chest pain Plan Pt is a 72-year-old male with a PMH significant for CAD with [place] x2 (COPD, depression, HTN, HLD, prostate cancer, Chiari malformation, recent rectal bleeding, and recent acute encephalopathy with paranoia and auditory hallucinations who is seen for admission H&P. Atypical chest pain Pt with history of CAD, but pain has been going on for weeks, especially associated with coughing Most likely musculoskeleta: pt not diaphoretic, tachycardic, tachypneic, anterior chest wall tender to palpation Will get EKG for baseline Continue aspirin, statin, metoprolol Chronic back and leg pain Encourage aide-assisted walking with walker in hallway Tylenol, diclofenac gel for pain F/U outpatient with ortho about right knee replacement HLD Continue home meds History of BPH Continue tamsulosin History of abdominal pain and rectal bleeding Patient will f/u outpatient for colonoscopy on 09/25/2022 COPD No wheezing or rhonchi on exam, does not seem in acute exacerbation Continue home inhalers Allergies Hold cetirizine d/t recent acute encephalopathy Thank you for allowing us to participate in the care of this pt. We will follow EKG once done. Please let us know if there are any additional questions or concerns Psychiatry 1. Gather collateral information. 2. Family meeting with the social work assistant and find out supports and possible discharge planning. 3. Continue Haldol 0.5 mg p.o. t.i.d. to target psychosis. On September 13 we change to Haldol 1 mg at 17:00 to target psychosis since the hallucinations are mostly in the evening. 4. Continue Lexapro 10 mg p.o. q.h.s.. Lexapro was increased up to 15 mg on September 15 5. Start Aricept 5 mg p.o. q.h.s. to target dementia . Increase Aricept to 10 mg p.o. q.h.s. on September 13. 6. Start Namenda 5 mg p.o. b.i.d. to target dementia, it has increased up to 10 mg p.o. b.i.d. on September 18. 7. Start working on discharge planning. Reason for contiued inpatient stay Substantial Risk for: inability to function, rapid decompensation and med/psych decompensation Time Spent With Patient Time: Total time managing care of this patient today __20__ minutes.
[2022-09-21] MEDS: HaloperidoL 1 MG TABLET PO ×2 (16:16→20:33)
[2022-09-21 18:00] VITALS: BP 116/61; PULSE 64; RESP 18; TEMP 36.6; O2SAT 96
[2022-09-21] MEDS: Donepezil HCl 10 MG TABLET PO (20:34)
[2022-09-22 09:50] VITALS: BP 122/62; PULSE 60; RESP 14; TEMP 36.3; O2SAT 95
[2022-09-22] MEDS: Aspirin Enteric Coated 81 MG TABLET.DR PO (10:05)
[2022-09-22] MEDS: Atorvastatin Calcium 40 MG TABLET PO (10:07)
[2022-09-22] MEDS: Escitalopram Oxalate 5 MG TABLET 15 MG PO (10:07)
[2022-09-22] MEDS: Metoprolol Tartrate 25 MG TABLET PO (10:07)
[2022-09-22] MEDS: Losartan Potassium 50 MG TABLET 100 MG PO (10:07)
[2022-09-22] MEDS: Tamsulosin HCL 0.4 MG CAPSULE PO (10:08)
[2022-09-22] MEDS: Memantine HCl 10 MG TABLET PO ×2 (10:08→20:38)
[2022-09-22] MEDS: Thiamine HCL 100 MG TABLET PO (10:08)
--- NOTE | 2022-09-22 11:46 | P.PNPSI_ITS ---
Subjective Subjective Date of Service: 09/22/22 Reason For Visit: psychosis Subjective Notes: Conditional Voluntary Interim History: The nursing staff reported the patient had been sleeping well, he has been fully compliant with his treatment he has been seen in the common areas participating in the therapeutic activities of the milieu. The dialysis social worker reported that they could not find her family but overall, he looks much better. On interview the patient denies new symptoms adamantly denies auditory hallucinations and he feels that his mood have improved since Lexapro was increased and his on this low dose of antipsychotics. No side effects. We will expect discharge at the end of the week.. Mental Status Exam Mental Status Exam Patient Appearance: Well Grooomed and Appropriate Patient Orientation: Person, Place and Situation Level of Consciousness: Awake and Appropriate Patient Behavior: Cooperative Mood Description: Calm Affect Description: Constricted Patient Cognition Impaired: Yes Ability to Follow Directions: Good Speech Pattern: Clear Hallucinations: None Delusions: Not Present Thought Process: Linear Thought Content: positive for [place], positive for Circum[place] and positive for [place] of Content Judgement: Fair Diagnostics Vital Signs (24Hr): Vital Signs - 24 hr 09/21/22 18:00 09/22/22 09:50 Temperature 98 F 97.3 F Pulse Rate 64 60 Respiratory Rate 18 14 Blood Pressure 116/61 122/62 Pulse Oximetry 96 95 Oxygen Delivery Method Room Air Room Air Medications Medications Current Medications Acetaminophen (Acetaminophen 325 Mg Tablet) 650 mg PO Q6H PRN PRN Reason: Headache/Pain Mild Scale (1-3) Last Admin: 09/14/22 20:54 Dose: 650 mg Al Hydroxide/Mg Hydroxide (Magnesium Hydrox/Alum Hydrox 30 Ml Oral.Susp) 30 ml PO Q6H PRN PRN Reason: Heartburn/Nausea Albuterol Sulfate (Albuterol Sulfate 90 Mcg 8 Gm Inhaler) 1 puff INHALE RQ4H PRN PRN Reason: Wheezing Albuterol Sulfate (Albuterol Sulfate 90 Mcg 8 Gm Inhaler) 2 puff INHALE RQ6H PRN PRN Reason: asthma attack Last Admin: 09/21/22 10:53 Dose: 2 puff Aspirin (Aspirin Enteric Coated 81 Mg Tablet.) 81 mg PO DAILY [facility] Last Admin: 09/22/22 10:05 Dose: 81 mg Atorvastatin Calcium (Atorvastatin Calcium 40 Mg Tablet) 40 mg PO DAILY [facility] Last Admin: 09/22/22 10:07 Dose: 40 mg Donepezil HCl (Donepezil Hcl 10 Mg Tablet) 10 mg PO BEDTIME [facility] Last Admin: 09/21/22 20:34 Dose: 10 mg Escitalopram Oxalate (Escitalopram Oxalate 5 Mg Tablet) 15 mg PO DAILY [facility] Last Admin: 09/22/22 10:07 Dose: 15 mg Haloperidol (Haloperidol 0.5 Mg Tablet) 0.5 mg PO BID PRN PRN Reason: psychosis Haloperidol (Haloperidol 1 Mg Tablet) 1 mg PO DAILY@1700 [facility] Last Admin: 09/21/22 16:16 Dose: 1 mg Haloperidol (Haloperidol 1 Mg Tablet) 1 mg PO BEDTIME [facility] Last Admin: 09/21/22 20:33 Dose: 1 mg Losartan Potassium (Losartan Potassium 50 Mg Tablet) 100 mg PO DAILY [facility] Last Admin: 09/22/22 10:07 Dose: 100 mg Magnesium Hydroxide (Milk Of Magnesia 30 Ml Oral.Susp) 30 ml PO DAILY PRN PRN Reason: Constipation Memantine (Memantine Hcl 10 Mg Tablet) 10 mg PO BID [facility] Last Admin: 09/22/22 10:08 Dose: 10 mg Metoprolol Tartrate (Metoprolol Tartrate 25 Mg Tablet) 25 mg PO DAILY [facility]; Protocol Last Admin: 09/22/22 10:07 Dose: 25 mg Nitroglycerin (Nitroglycerin 0.4 Mg Tab.Subl) 0 mg SUBLINGUAL Q5MX3 PRN PRN Reason: Chest Pain Non-Formulary Medication (Diclofenac Sodium) 2 gm TOPICAL QID [facility] Non-Formulary Medication (Umeclidinium-Vilanterol) 1 inhalation INHALE DAILY [facility] Omeprazole (Omeprazole 20 Mg Capsule.Dr) 20 mg PO DAILY [facility] Last Admin: 09/21/22 10:10 Dose: 20 mg Polyethylene Glycol (Polyethylene Glycol 3350 17 Gm Powd.Pack) 17 gm PO DAILY [facility] Last Admin: 09/21/22 11:23 Dose: Not Given Tamsulosin HCl (Tamsulosin Hcl 0.4 Mg Capsule) 0.4 mg PO DAILY [facility] Last Admin: 09/22/22 10:08 Dose: 0.4 mg Thiamine HCl (Thiamine Hcl 100 Mg Tablet) 100 mg PO DAILY@0730 [facility] Last Admin: 09/22/22 10:08 Dose: 100 mg Tiotropium [place] (Tiotropium [place] 18 Mcg Cap.W.Dev) 2 puff INHALE RDAILY [facility] Last Admin: 09/22/22 10:09 Dose: 2 puff Trazodone HCl (Trazodone Hcl 50 Mg Tablet) 50 mg PO BEDTIME PRN PRN Reason: Insomnia Allergies Allergies Allergy/AdvReac Type Severity Reaction Status Date / Time No Known Allergies Allergy Verified 09/09/22 18:54 Assessment & Plan Assessment & Plan (1) Routine history and physical examination of adult: Status: Acute Code(s): Z00.00 - Encounter for general adult medical examination without abnormal findings (2) Atypical chest pain: Status: Acute Code(s): R07.89 - Other chest pain Plan Pt is a 72-year-old male with a PMH significant for CAD with [place] x2 (COPD, depression, HTN, HLD, prostate cancer, Chiari malformation, recent rectal bleeding, and recent acute encephalopathy with paranoia and auditory hallucinations who is seen for admission H&P. Atypical chest pain Pt with history of CAD, but pain has been going on for weeks, especially associated with coughing Most likely musculoskeleta: pt not diaphoretic, tachycardic, tachypneic, anterior chest wall tender to palpation Will get EKG for baseline Continue aspirin, statin, metoprolol Chronic back and leg pain Encourage aide-assisted walking with walker in hallway Tylenol, diclofenac gel for pain F/U outpatient with ortho about right knee replacement HLD Continue home meds History of BPH Continue tamsulosin History of abdominal pain and rectal bleeding Patient will f/u outpatient for colonoscopy on 09/25/2022 COPD No wheezing or rhonchi on exam, does not seem in acute exacerbation Continue home inhalers Allergies Hold cetirizine d/t recent acute encephalopathy Thank you for allowing us to participate in the care of this pt. We will follow EKG once done. Please let us know if there are any additional questions or concerns Psychiatry 1. Gather collateral information. 2. Family meeting with the dialysis social worker and find out supports and possible discharge planning. 3. Continue Haldol 0.5 mg p.o. t.i.d. to target psychosis. On September 13 we change to Haldol 1 mg at 17:00 to target psychosis since the hallucinations are mostly in the evening. 4. Continue Lexapro 10 mg p.o. q.h.s.. Lexapro was increased up to 15 mg on September 15 5. Start Aricept 5 mg p.o. q.h.s. to target dementia . Increase Aricept to 10 mg p.o. q.h.s. on September 13. 6. Start Namenda 5 mg p.o. b.i.d. to target dementia, it has increased up to 10 mg p.o. b.i.d. on September 18. 7. Start working on discharge planning. Reason for contiued inpatient stay Substantial Risk for: inability to function, rapid decompensation and med/psych decompensation Time Spent With Patient Time: Total time managing care of this patient today __20__ minutes.
[2022-09-22] MEDS: Omeprazole 20 MG CAPSULE.DR PO (16:33)
[2022-09-22] MEDS: HaloperidoL 1 MG TABLET PO ×2 (17:50→20:38)
[2022-09-22 18:00] VITALS: BP 116/56; PULSE 58; RESP 16; TEMP 36.6; O2SAT 98
[2022-09-22] MEDS: Donepezil HCl 10 MG TABLET PO (20:38)
[2022-09-23 06:00] VITALS: BP 126/67; PULSE 76; RESP 16; TEMP 36.3; O2SAT 97
[2022-09-23] MEDS: Atorvastatin Calcium 40 MG TABLET PO (09:39)
[2022-09-23] MEDS: Memantine HCl 10 MG TABLET PO ×2 (09:39→20:21)
[2022-09-23] MEDS: Escitalopram Oxalate 5 MG TABLET 15 MG PO (09:39)
[2022-09-23] MEDS: Metoprolol Tartrate 25 MG TABLET PO (09:39)
[2022-09-23] MEDS: Omeprazole 20 MG CAPSULE.DR PO (09:39)
[2022-09-23] MEDS: Aspirin Enteric Coated 81 MG TABLET.DR PO (09:39)
[2022-09-23] MEDS: Tamsulosin HCL 0.4 MG CAPSULE PO (09:39)
[2022-09-23] MEDS: Thiamine HCL 100 MG TABLET PO (09:40)
[2022-09-23] MEDS: Losartan Potassium 50 MG TABLET 100 MG PO (09:40)
--- NOTE | 2022-09-23 14:40 | P.PNPSI_ITS ---
Subjective Subjective Date of Service: 09/23/22 Reason For Visit: psychosis Subjective Notes: Conditional Voluntary Interim History: The nursing staff reported that the patient has been fully compliant treatment, he has attended to groups, he interacts positively to staff and peers. On interview, he denied psychotic symptoms, his mood is much better, no safety concerns, willing to follow treatment as an outpatient. Mental Status Exam Mental Status Exam Patient Appearance: Well Grooomed Patient Orientation: Person and Situation Level of Consciousness: Awake and Appropriate Patient Behavior: Cooperative Mood Description: Calm Affect Description: Constricted Patient Cognition Impaired: Yes Ability to Follow Directions: Good Speech Pattern: Clear Hallucinations: None Delusions: Not Present Thought Process: Linear Thought Content: positive for [place] Judgement: Fair Diagnostics Vital Signs (24Hr): Vital Signs - 24 hr 09/22/22 18:00 09/23/22 06:00 Temperature 97.8 F 97.3 F Pulse Rate 58 76 Respiratory Rate 16 16 Blood Pressure 116/56 L 126/67 Pulse Oximetry 98 97 Oxygen Delivery Method Room Air Medications Medications Current Medications Acetaminophen (Acetaminophen 325 Mg Tablet) 650 mg PO Q6H PRN PRN Reason: Headache/Pain Mild Scale (1-3) Last Admin: 09/14/22 20:54 Dose: 650 mg Al Hydroxide/Mg Hydroxide (Magnesium Hydrox/Alum Hydrox 30 Ml Oral.Susp) 30 ml PO Q6H PRN PRN Reason: Heartburn/Nausea Albuterol Sulfate (Albuterol Sulfate 90 Mcg 8 Gm Inhaler) 1 puff INHALE RQ4H PRN PRN Reason: Wheezing Albuterol Sulfate (Albuterol Sulfate 90 Mcg 8 Gm Inhaler) 2 puff INHALE RQ6H PRN PRN Reason: asthma attack Last Admin: 09/21/22 10:53 Dose: 2 puff Aspirin (Aspirin Enteric Coated 81 Mg Tablet.) 81 mg PO DAILY [facility] Last Admin: 09/23/22 09:39 Dose: 81 mg Atorvastatin Calcium (Atorvastatin Calcium 40 Mg Tablet) 40 mg PO DAILY [facility] Last Admin: 09/23/22 09:39 Dose: 40 mg Donepezil HCl (Donepezil Hcl 10 Mg Tablet) 10 mg PO BEDTIME [facility] Last Admin: 09/22/22 20:38 Dose: 10 mg Escitalopram Oxalate (Escitalopram Oxalate 5 Mg Tablet) 15 mg PO DAILY [facility] Last Admin: 09/23/22 09:39 Dose: 15 mg Haloperidol (Haloperidol 0.5 Mg Tablet) 0.5 mg PO BID PRN PRN Reason: psychosis Haloperidol (Haloperidol 1 Mg Tablet) 1 mg PO DAILY@1700 [facility] Last Admin: 09/22/22 17:50 Dose: 1 mg Haloperidol (Haloperidol 1 Mg Tablet) 1 mg PO BEDTIME [facility] Last Admin: 09/22/22 20:38 Dose: 1 mg Losartan Potassium (Losartan Potassium 50 Mg Tablet) 100 mg PO DAILY [facility] Last Admin: 09/23/22 09:40 Dose: 100 mg Magnesium Hydroxide (Milk Of Magnesia 30 Ml Oral.Susp) 30 ml PO DAILY PRN PRN Reason: Constipation Memantine (Memantine Hcl 10 Mg Tablet) 10 mg PO BID [facility] Last Admin: 09/23/22 09:39 Dose: 10 mg Metoprolol Tartrate (Metoprolol Tartrate 25 Mg Tablet) 25 mg PO DAILY [facility]; Protocol Last Admin: 09/23/22 09:39 Dose: 25 mg Nitroglycerin (Nitroglycerin 0.4 Mg Tab.Subl) 0 mg SUBLINGUAL Q5MX3 PRN PRN Reason: Chest Pain Non-Formulary Medication (Diclofenac Sodium) 2 gm TOPICAL QID [facility] Non-Formulary Medication (Umeclidinium-Vilanterol) 1 inhalation INHALE DAILY [facility] Omeprazole (Omeprazole 20 Mg Capsule.Dr) 20 mg PO DAILY [facility] Last Admin: 09/23/22 09:39 Dose: 20 mg Polyethylene Glycol (Polyethylene Glycol 3350 17 Gm Powd.Pack) 17 gm PO DAILY [facility] Last Admin: 09/23/22 10:34 Dose: Not Given Tamsulosin HCl (Tamsulosin Hcl 0.4 Mg Capsule) 0.4 mg PO DAILY [facility] Last Admin: 09/23/22 09:39 Dose: 0.4 mg Thiamine HCl (Thiamine Hcl 100 Mg Tablet) 100 mg PO DAILY@0730 [facility] Last Admin: 09/23/22 09:40 Dose: 100 mg Tiotropium [place] (Tiotropium [place] 18 Mcg Cap.W.Dev) 2 puff INHALE RDAILY [facility] Last Admin: 09/23/22 09:39 Dose: 2 puff Trazodone HCl (Trazodone Hcl 50 Mg Tablet) 50 mg PO BEDTIME PRN PRN Reason: Insomnia Allergies Allergies Allergy/AdvReac Type Severity Reaction Status Date / Time No Known Allergies Allergy Verified 09/09/22 18:54 Assessment & Plan Assessment & Plan (1) Routine history and physical examination of adult: Status: Acute Code(s): Z00.00 - Encounter for general adult medical examination without abnormal findings (2) Atypical chest pain: Status: Acute Code(s): R07.89 - Other chest pain Plan Pt is a 72-year-old male with a PMH significant for CAD with [place] x2 (COPD, depression, HTN, HLD, prostate cancer, Chiari malformation, recent rectal bleeding, and recent acute encephalopathy with paranoia and auditory hallucinations who is seen for admission H&P. Atypical chest pain Pt with history of CAD, but pain has been going on for weeks, especially associated with coughing Most likely musculoskeleta: pt not diaphoretic, tachycardic, tachypneic, anterior chest wall tender to palpation Will get EKG for baseline Continue aspirin, statin, metoprolol Chronic back and leg pain Encourage aide-assisted walking with walker in hallway Tylenol, diclofenac gel for pain F/U outpatient with ortho about right knee replacement HLD Continue home meds History of BPH Continue tamsulosin History of abdominal pain and rectal bleeding Patient will f/u outpatient for colonoscopy on 09/25/2022 COPD No wheezing or rhonchi on exam, does not seem in acute exacerbation Continue home inhalers Allergies Hold cetirizine d/t recent acute encephalopathy Thank you for allowing us to participate in the care of this pt. We will follow EKG once done. Please let us know if there are any additional questions or concerns Psychiatry 1. Gather collateral information. 2. Family meeting with the school social worker and find out supports and possible discharge planning. 3. Continue Haldol 0.5 mg p.o. t.i.d. to target psychosis. On September 13 we change to Haldol 1 mg at 17:00 to target psychosis since the hallucinations are mostly in the evening. 4. Continue Lexapro 10 mg p.o. q.h.s.. Lexapro was increased up to 15 mg on September 15 5. Start Aricept 5 mg p.o. q.h.s. to target dementia . Increase Aricept to 10 mg p.o. q.h.s. on September 13. 6. Start Namenda 5 mg p.o. b.i.d. to target dementia, it has increased up to 10 mg p.o. b.i.d. on September 18. 7. Start working on discharge planning. D/C scheduled for tomorrow. Reason for contiued inpatient stay Substantial Risk for: inability to function, rapid decompensation and med/psych decompensation Time Spent With Patient Time: Total time managing care of this patient today __20__ minutes.
[2022-09-23] MEDS: HaloperidoL 1 MG TABLET PO ×2 (17:16→20:21)
[2022-09-23 18:00] VITALS: BP 151/78; PULSE 51; RESP 18; TEMP 36.4; O2SAT 96
[2022-09-23] MEDS: Donepezil HCl 10 MG TABLET PO (20:20)
[2022-09-23] MEDS: traZODone HCL 50 MG TABLET PO (20:21)
[2022-09-23 21:00] VITALS: BP 151/78; PULSE 51; RESP 16; TEMP 36.4; O2SAT 96
--- NOTE | 2022-09-24 08:21 | PM.PSYDC ---
DS: Providers Provider Date of Service: 09/24/22 Date of admission: 09/09/22 18:40 Date of discharge: 09/24/22 Primary care physician: Unknown Physician Consults: 09/09/22 18:54 Consult to Hospitalist Routine Consulting Provider: Hospitalist Reason For Exam: OSH admission Attending physician on discharge: Codey Mcgovern DS: Diagnosis Discharge Diagnosis (1) Routine history and physical examination of adult: Status: Acute (2) Atypical chest pain: Status: Acute DS: Medications Discharge Medications Home Medications: Home Medications Medication Instructions Recorded Confirmed Seroquel 25 mg PO BEDTIME 09/09/22 09/09/22 Seroquel 25 mg PO Q6H PRN Psychosis 09/09/22 09/09/22 acetaminophen 1,000 mg PO Q6H PRN Pain 09/09/22 09/09/22 albuterol sulfate 1 puff inhalation Q4H PRN Wheezing 09/09/22 09/09/22 aspirin 81 mg tablet,delayed 81 mg PO DAILY 09/09/22 09/09/22 release atorvastatin 40 mg tablet 40 mg PO DAILY 09/09/22 09/09/22 cetirizine 10 mg tablet 10 mg PO DAILY 09/09/22 09/09/22 citalopram 20 mg PO DAILY 09/09/22 09/09/22 diclofenac sodium 1 % topical gel 2 g topical QID 09/09/22 09/10/22 losartan 100 mg PO DAILY 09/09/22 09/09/22 metoprolol tartrate 25 mg tablet 25 mg PO DAILY 09/09/22 09/10/22 nitroglycerin 0.4 mg sublingual See Rx Instructions .Route .COMPLEX 09/09/22 09/10/22 tablet polyethylene glycol 17 g PO DAILY constipation 09/09/22 09/09/22 thiamine HCl (vitamin B1) 100 mg PO DAILY@0730 09/09/22 09/09/22 pantoprazole 40 mg tablet,delayed 40 mg PO DAILY 09/10/22 09/10/22 release peg-electrolyte solution oral 240 ml PO Q10M 09/10/22 09/10/22 tamsulosin 0.4 mg capsule 0.4 mg PO DAILY 09/10/22 09/10/22 tiotropium bromide 2.5 2 puff inhalation DAILY 09/10/22 09/10/22 mcg/actuation mist for inhalation umeclidinium 62.5 mcg-vilanterol 1 inh inhalation DAILY 09/10/22 09/10/22 25 mcg/actuation powdr for inhalation Mental Status Exam Mental Status Exam Patient Appearance: Well Grooomed and Appropriate Patient Orientation: Person, Place and Situation Level of Consciousness: Awake and Appropriate Patient Behavior: Guarded, Cooperative and Passive Mood Description: Withdrawn Affect Description: Constricted Patient Cognition Impaired: Yes Ability to Follow Directions: Good Speech Pattern: Clear Hallucinations: None Delusions: Not Present Thought Process: Linear Thought Content: positive for [place] and positive for Circumstantial Judgement: Fair DS: Summary Hospital Course Hospital Course: The patient was initially admitted for auditory hallucinations, paranoia and confusion mostly in the evening. Please see the [facility] admission note for further details. The patient has never heard auditory hallucinations or any psychotic symptoms in the past but apparently in the last month he has been having these symptoms. The patient had a diagnosis of major depressive disorder in the past and he has been treated successfully with Lexapro. On admission, the patient was dysphoric, complaining of auditory hallucinations and he was feeling slightly paranoid, he used to stable stove the time on his room. We discussed risks, benefits, side-effects and alternatives and he agreed to start haloperidol titrated slowly up to 1 mg twice a day at 19:00 and HS to target psychosis. Also, since he was dysphoric we increased the Lexapro from 10-15 mg. After a few days of treatment, the patient reported improvement of his auditory hallucinations, resolution of paranoia and he is dysphoria improved remarkably to the point that he was attending to groups, interacting safely with peers and staff. The occupational therapist did a Fajardo test on [place] and he scored 8/30 but his Andrea test was high. We decided to start treating his dementia so initially was titrated slowly to Aricept up to 10 mg p.o. q.h.s. and later Namenda was internally used titrated up to 10 mg p.o. b.i.d. without any side effects. Since there were no safety concerns discharge planning was discussed. Time spent discussing smoking cessation with patient: 3 to 10 minutes Status at Discharge Cognitive/behavioral status at discharge: At baseline, Fajardo 8/30 Functional status at discharge: independent ambulation Overall status at discharge: patient is back to baseline Time Spent with Patient Time attestation: Total time managing care of this patient today __30__ minutes. Time spent: Less than 30 minutes Discharge Plan Discharge Anticipated Discharge Date/Time: 09/24/22 11:00 Patient Disposition: Home, Self-Care Discharge Diagnosis: Major depressive disorder recurrent episode. Dementia Psychosis resolved Referrals: Physician,Unknown J [Primary Care Provider] - 1 Week Discharge Medications: New trazodone 50 mg Tablet 50 mg PO BEDTIME PRN (Reason: Insomnia) 30 Days Qty: 30 0RF donepezil 10 mg Tablet 10 mg PO BEDTIME 30 Days Qty: 30 0RF haloperidol 1 mg Tablet 1 mg PO DAILY@1700 30 Days Qty: 30 0RF haloperidol 1 mg Tablet 1 mg PO BEDTIME 30 Days Qty: 30 0RF memantine [Namenda] 10 mg Tablet 10 mg PO BID 30 Days Qty: 60 0RF escitalopram oxalate 5 mg Tablet 15 mg PO DAILY 30 Days Qty: 90 0RF Continued atorvastatin 40 mg Tablet 40 mg PO DAILY 30 Days Qty: 30 0RF Rx Instructions: DURATION: 30 DAYS, [place] [employer] cetirizine 10 mg Tablet 10 mg PO DAILY 30 Days Qty: 30 0RF aspirin 81 mg Tablet,Delayed Release (Dr/Ec) 81 mg PO DAILY 30 Days Qty: 30 0RF tamsulosin 0.4 mg Capsule 0.4 mg PO DAILY 30 Days Qty: 30 0RF pantoprazole 40 mg Tablet,Delayed Release (Dr/Ec) 40 mg PO DAILY 30 Days Qty: 30 0RF Rx Instructions: [place] [employer] nitroglycerin 0.4 mg Tablet, Sublingual See Rx Instructions .ROUTE .COMPLEX 30 Days Qty: 6 0RF Rx Instructions: 0.4 mg sublingually EVERY 5 MIN NEEDED FOR CHEST PAIN, NOT TO EXCEED 3 DOSES/15 MIN -- IF PAIN PERSISTS, SEEK MEDICAL ATTENTION metoprolol tartrate 25 mg Tablet 25 mg PO DAILY 30 Days Qty: 30 0RF Rx Instructions: DURATION: 30 DAYS, [place] [employer] diclofenac sodium 1 % Gel 2 g TOPICAL QID 30 Days Qty: 1 0RF Rx Instructions: apply to single elbow, wrist or hand; for hand includes palm/fingers/back of hand, NOT TO EXCEED 32 GRAMS/DAY tiotropium bromide 2.5 mcg/actuation Mist 2 puff INHALATION DAILY 30 Days Qty: 1 0RF Rx Instructions: [place] [employer], 2.5 MCG/INH, TOTAL DOSE IS 5 MCG IN 2 PUFFS umeclidinium-vilanterol 62.5-25 mcg/actuation Blister With Device 1 inh INHALATION DAILY 30 Days Qty: 30 0RF albuterol sulfate 90 MCG cartridge with inhaler 1 puff inhalation Q4H PRN (Reason: Wheezing) 30 Days Qty: 1 0RF losartan 50 MG bottle 100 mg PO DAILY 30 Days Qty: 30 0RF polyethylene glycol powder 17 g PO DAILY 30 Days Qty: 30 0RF thiamine HCl (vitamin B1) 100 mg PO DAILY@0730 30 Days Qty: 30 0RF Discontinued citalopram 20 mg PO DAILY Rx Instructions: Doctor's Order Seroquel 25 mg PO BEDTIME Seroquel 25 mg PO Q6H PRN (Reason: Psychosis) acetaminophen 500 MG bottle 1,000 mg PO Q6H PRN (Reason: Pain) peg-electrolyte soln Solution 240 ml PO Q10M Rx Instructions: DRINK EVERY 15 MIN UNTIL GONE AND until fecal effluent is clear Discharge Orders: Discharge Order (Routine); Ordered 09/24/22 Ordered By: Codey Mcgovern Diet: Advance to usual diet Activity on Discharge: As tolerated Stand Alone Forms: Patient Portal Discharge page Care Plan Goals: Care plan goals achieved at this admission Health Concerns: Continue treatment with regular primary care physician Plan of Treatment: Continue treatment as an outpatient with mental health providers Assessment: Elderly male with a long history of major depressive disorder, new onset of dimension admitted for psychosis that responded fairly well to haloperidol and started on Namenda and Aricept to target his dementia. Currently safe with better improved mood no safety concerns.
[2022-09-24 09:00] VITALS: BP 148/72; PULSE 53; RESP 16; TEMP 36.5; O2SAT 97
[2022-09-24] MEDS: Escitalopram Oxalate 5 MG TABLET 15 MG PO (09:58)
[2022-09-24] MEDS: Atorvastatin Calcium 40 MG TABLET PO (09:58)
[2022-09-24] MEDS: Omeprazole 20 MG CAPSULE.DR PO (09:58)
[2022-09-24] MEDS: Memantine HCl 10 MG TABLET PO (09:58)
[2022-09-24] MEDS: Losartan Potassium 50 MG TABLET 100 MG PO (09:59)
[2022-09-24] MEDS: Tamsulosin HCL 0.4 MG CAPSULE PO (09:59)
[2022-09-24] MEDS: Thiamine HCL 100 MG TABLET PO (09:59)
[2022-09-24] MEDS: Aspirin Enteric Coated 81 MG TABLET.DR PO (10:00)
== END 2022-09-24 16:20 | disposition home or self-care (01) | DRG 885 ==
PROVIDERS: Admitting Provider Psychiatry & Neurology Psychiatry; Visit Provider Psychiatry & Neurology Psychiatry
DX: F33.3 Major depressive disorder, recurrent, severe with psychotic symptoms (principal); J44.9 Chronic obstructive pulmonary disease, unspecified; I10 Essential (primary) hypertension; E78.5 Hyperlipidemia, unspecified; N40.0 Benign prostatic hyperplasia without lower urinary tract symptoms; I25.10 Atherosclerotic heart disease of native coronary artery without angina pectoris; R07.89 Other chest pain; F03.90 Unspecified dementia, unspecified severity, without behavioral disturbance, psychotic disturbance, mood disturbance, and anxiety; I25.2 Old myocardial infarction; Z79.82 Long term (current) use of aspirin; Z79.899 Other long term (current) drug therapy
CPT/HCPCS: 93005